=== PATIENT | female | born 1930 | race Caucasian/White ===

== ENCOUNTER 2017-05-20 02:33 | Inpatient (IN) | payer OTHER ==
[~2017-05-20] VITALS: Ht 162.6 cm; Wt 68.9 kg
--- NOTE | ~2017-05-20 | O ---
[facility] [place] [address] OPERATIVE REPORT Name: KADYRIVER J Room #: 238-P ADM IN M.R.#: [id number] Admission: 05/20/17 Attend Phys: Gilmar Navarro DO Discharge: Date of : 32 Report #: [id number] THIS REPORT FOR: //name// CC: EUGENIO CARTER FAM unknown Gilmar Navarro DATE OF SERVICE: 05/28/2017 PREOPERATIVE DIAGNOSES: 1. Pneumonia. 2. Complex parapneumonic right pleural effusion. FINAL DIAGNOSES: 1. Pneumonia. 2. Complex parapneumonic right pleural effusion. OPERATIVE PROCEDURE PERFORMED: Right thoracotomy with decortication of right lower lobe. SURGEON: Derrek Pittman MD, PHYSICIAN ASSISTANT CERTIFIED: JOVANNI Carr. ANESTHESIA: General. OPERATIVE INDICATIONS: The patient is an 86-year-old female who was recently admitted to the hospital with dyspnea, diagnosed with right lower lobe pneumonia. She has developed a complex parapneumonic effusion which has not responded to small bore catheter placement. She was brought to the operating room now for decortication. OPERATIVE SUMMARY: The patient was brought into the operating room, placed on the OR table in supine position. After anesthesia was induced via the general endotracheal route and monitoring lines have been positioned, the patient was placed in left lateral decubitus position, prepped and draped in sterile fashion with chlorhexidine. A standard posterolateral thoracotomy incision was made. We entered the pleural space, the 6th intercostal space. We found abundant fibrinopurulent exudates in the right costovertebral angle and surrounding all of the right lower lobe. These exudates were stripped from the lung, from the vessel and the parietal pleural surface including the surface over the diaphragm. The right lower lobe was noted to be boggy and fragile consistent with the presence of pneumonia. The right upper lobe was relatively spared, as was the right middle lobe. Once the exudative material was freely debrided, the pleural space was irrigated with warm normal saline solution. Two 28-Spanish chest tubes were placed in the right pleural space, brought out through separate [facility] [address] [place] [address] OPERATIVE REPORT Name: RIVER HILLMAN Room #: 238-P [facility] IN .R.#: [id number] Admission: 05/20/17 Attend Phys: Gilmar Navarro DO Discharge: Date of : 32 Report #: [id number] stab incisions. It should be noted multiple inadvertent pulmonotomies were closed with chromic suture. The ribs were then reapproximated with #2 PDS suture. The muscular layers closed with #1 Vicryl, subcutaneous fascia with 2-0 Vicryl and skin with a 3-0 Monocryl. The sterile dressings were applied. The procedure was completed. The patient was taken to the postanesthesia care unit in stable condition. The operative blood loss was 58 mL. No intraoperative complications noted. All sponge, needle counts were reported as correct. By: 1344 [id number] /nt
--- NOTE | ~2017-05-20 | HC ---
[facility] [place] [address] CONSULTATION Name: RIVER HILLMAN Julian Room #: 408-P [facility] IN M.R.#: [id number] Admission: 05/20/17 Attend Phys: Gilmar Navarro DO Discharge: Date of : 32 Report #: [id number] THIS REPORT FOR: //name// CC: FAM unknown Gilmar Navarro REASON FOR CONSULTATION: I was asked to evaluate concerning right lung pneumonia. HISTORY OF PRESENT ILLNESS: The patient was an 86-year-old with underlying history of atrial fibrillation, hypertension and permanent pacemaker. Had acute onset of fever, chills, nausea and vomiting 2 days ago. Then developed some minimally productive cough and right-sided chest pain. Did not record her temperature. The pain worsened and was having difficulty catching her breath and she was brought in through the Emergency Room. Since admission, she has been placed on Levaquin and Solu-Medrol. She is on 2 liters of oxygen per nasal cannula. Continues to have pleuritic type chest pain in the right side. Denies any rash, further nausea, vomiting or diarrhea. No dysuria or frequency. No arthritis symptoms. No headache. No pharyngitis symptoms. She has had no travel outside the [place]. She does live with her and has visits from her grandchildren frequently. No one with known influenza. She has not had influenza vaccination this year. She is up to date on pneumococcal vaccine. ALLERGIES: None known. MEDICATIONS: As noted on her MAR including aspirin, losartan, Coumadin, hydrochlorothiazide and carvedilol. PAST MEDICAL HISTORY: Hypertension, pneumonia in the fall of 2008, atrial fibrillation for which she has a permanent pacemaker and remains on anticoagulation. FAMILY HISTORY: Noncontributory. SOCIAL HISTORY: Past smoker, no significant alcohol intake. REVIEW OF SYSTEMS: As noted above. PHYSICAL EXAMINATION: VITAL SIGNS: Afebrile and hemodynamically stable. GENERAL: She was alert and cooperative. She appeared ill. SKIN: Unremarkable. LYMPH: Unremarkable. EYES: Unremarkable. MOUTH: Unremarkable. [facility] [address] [place] [address] CONSULTATION Name: KADYRIVER Room #: [address] [place] [address] IN M.R.#: [id number] Admission: 05/20/17 Attend Phys: Gilmar Navarro DO Discharge: Date of : 32 Report #: [id number] NECK: Supple. LUNGS: Consolidation heard in the right mid posterior chest. There was rub audible on the right lateral mid chest. HEART: Regular, without murmur. ABDOMEN: Soft, nontender, no hepatosplenomegaly or mass appreciated. EXTREMITIES: Unremarkable. NEUROLOGIC: Nonfocal. LABORATORY STUDIES: Chest x-ray, right middle lobe and right lower lobe pulmonary infiltrate. She had a permanent pacemaker. Sodium 127, potassium 4.7, bicarbonate 25, creatinine 1.1, AST 81, ALT 78, alkaline phosphatase 131, bilirubin 2.6, hemoglobin 14.6, platelet count 136,000, white count was 6.6. Differential unremarkable. BNP 14,000. Echocardiogram, moderate aortic regurgitation and mitral regurgitation. Blood cultures are negative to date. IMPRESSION: Community-acquired pneumonia, right middle lobe, right lower lobe. This is in the setting of anticoagulation for atrial fibrillation. Suspecting pneumococcal pneumonia. Still possible we could be dealing with influenza. This would be less likely to cause the amount of pleuritic reaction. I would recommend that we continue IV antibiotic therapy along with antiviral therapy. Screen sputum culture as well as urine antigens. Screen for influenza. Monitor chest x-ray as she continues her treatment. She is at risk for developing further complications such as parapneumonic effusion. <ELECTRONICALLY SIGNED> By: Edgar Gracia MD 05/20/17 1818 1542 180 Edgar Garcia MD /nt
--- NOTE | ~2017-05-20 | HC ---
[facility] [place] [address] CONSULTATION Name: RIVER HILLMAN Room #: 238-P ADM IN M.R.#: [id number] Admission: 05/20/17 Attend Phys: Gilmar Navarro DO Discharge: Date of : 32 Report #: [id number] THIS REPORT FOR: //name// CC: GALO MOSES unknown Gilmar Parekh MD DATE OF SERVICE: 05/21/2017 REFERRING PROVIDER: Dr. Gilmar Navarro. REASON FOR CONSULTATION: Pleural effusion and pneumonia. CHIEF COMPLAINT: Chest pain and shortness of breath. HISTORY OF PRESENT ILLNESS: Our group was asked to see the patient in consultation while hospitalized at [facility]. History was taken from review of records and discussion with at the bedside and patient. She is a difficult historian due to some confusion, an 86-year-old, has a past pulmonary history, has had 3 days of increasing shortness of breath, right-sided chest pain, general malaise, fatigue and nausea, presented to the Emergency Department yesterday afternoon, was noted to have a significant right-sided infiltrate, underwent CT imaging yesterday evening, which revealed a moderate-sized right pleural effusion in addition to infiltrate. We were asked to evaluate today, seen around 12 o'clock this afternoon. The patient was somewhat confused, had no cough or sputum production but has continued to have some pleuritic right-sided chest pain. Of note, INR had been markedly elevated and she has been on warfarin for atrial fibrillation. ALLERGIES: None known. PAST MEDICAL HISTORY: 1. History of atrial fibrillation. 2. Sick sinus syndrome, status post pacemaker. 3. Hypertension. 4. Pneumonia in 2008. SOCIAL HISTORY: She is an ex-smoker, quitting about 20 years ago. No significant alcohol consumption. Lives with . FAMILY HISTORY: Noncontributory due to advanced age. REVIEW OF SYSTEMS: As described above. A 12-point review of systems is negative or difficult to obtain from the patient. [facility] [address] [place] [address] CONSULTATION Name: KADYJOSE MANUELRIVER J Room #: 238-[facility] IN [facility].#: [id number] Admission: 05/20/17 Attend Phys: Gilmar Navarro DO Discharge: Date of : 32 Report #: [id number] PHYSICAL EXAMINATION: VITAL SIGNS: Afebrile, pulse 60, respiratory rate of 16, blood pressure 120/70. GENERAL: This is a pleasant elderly woman, does not appear in any distress, somewhat confused. ENT: Clear oropharynx. NECK: Supple, no lymphadenopathy. LUNGS: Markedly diminished right base with some crackles. CARDIOVASCULAR: Heart regular. No murmurs or gallops. ABDOMEN: Soft, nontender. No mass. EXTREMITIES: Without edema, diminished pulses. LABORATORY DATA: White blood cell count 12,000, hemoglobin 14, hematocrit 42, platelet count 141. Sodium 126, potassium 5.0, chloride 94, bicarbonate 23, BUN 43, creatinine 1.6, glucose 92. Lactate was 2.2 earlier today. Arterial blood gas on 2 liters showed pH 7.36, pCO2 of 37, pO2 of 71, bicarbonate 20. CT scan as described in HPI. IMPRESSION: 1. Moderately large right pleural effusion. 2. Pneumonia, community acquired. 3. Strep bacteremia. 4. Acute renal insufficiency. 5. Confusion. 6. History of sick sinus syndrome with pacemaker. Overall, findings were worrisome for early sepsis due to strep bacteremia, likely from strep pneumonia and possible empyema with hypercoagulable state. RECOMMENDATIONS: 1. Reversing warfarin now with FFP. 2. As soon as able, place either a pigtail catheter in the right pleural space or simple drainage with thoracentesis if it appears amenable. 3. Antibiotics per Infectious Disease service. 4. Low threshold to transfer to ICU for further management. 5. Follow up laboratories this afternoon regarding chemistries in a.m. with CBC and chemistry profile. 6. We will continue to follow with you. Thank you for requesting our suggestions. <ELECTRONICALLY SIGNED> By: Corey Chavarria MD 05/28/17 1756 10 25 Corey Chavarria MD /nt
--- NOTE | ~2017-05-20 | EKG ---
[address] [place] [address] ELECTROCARDIOGRAM REPORT Name: KADYRIVER Jordan Room #: 408-P ADM IN M.R.#: [id number] Admission: 05/20/17 Attend Phys: Gilmar Navarro DO Discharge: Date of : 32 Report #: [id number] THIS REPORT FOR: //name// [facility] ED Test Date: 2017-05-20 Test Time: 02:38:58 Pat Name: RIVER HILLMAN Department: Room: 408 Gender: F [employer] Supervisor: MZOOK : 1930 Requested By: Edgar Sanon Order Number: [id number] MD: Lorenzo Jackson Measurements Intervals [place] Rate: 60 P: GA: QRS: -71 QRSD: 135 T: 100 QT: 437 QTc: 437 Interpretive Statements Ventricular pacing Compared to ECG 11/05/2011 06:06:09 Ventricular pacing is now present Electronically Signed On 05-20-2017 15:00:19 CDT by Lorenzo Jackson [email or web address] <ELECTRONICALLY SIGNED> By: Lorenzo Jackson MD, [facility] 05/20/17 1500 0238 0238 Lorenzo Jackson MD, FACC /EPI
--- NOTE | ~2017-05-20 | S ---
[facility] [place] [address] SURGICAL PATH RPT PROCEDURE Name: AMALIA HILLMAN Room #: 215-P ADM IN M.R.#: [id number] Admission: 05/20/17 Date of : 32 Discharge: Report #: [id number] Path Case #: [id number] PATHOLOGY REPORT COLLECTION DATE: 05/28/2017 RECEIVED DATE: 05/28/2017 SUBMITTING PHYS: Dr. Derrek Pittman OTHER PHYS: Dr. Gilmar Cobos SPECIMEN(S) RECEIVED: A.Right pleural exudate * * * * * * * * * * * * FINAL DIAGNOSIS: Right pleural exudate: - Fibrinopurulent material, consistent with exudate. (IUV:mml; 05/29/2017) PATHOLOGIST: Estefanía Lawson M.D. REPORT ELECTRONICALLY SIGNED BY: Estefanía Lawson M.D. DATE/TIME: 05/29/2017 15:15 * * * * * * * * * * * * GROSS PATHOLOGY: Received in formalin labeled "Amalia Hillman, right pleural exudate" is a 10.1 x 8.2 x 1.2 cm aggregate of wiggins-white rubbery membranous soft tissue fragments. Hall Monitor sections are submitted in cassette A1. [place] [place] CLINICAL HISTORY: Peripneumonic effusion. INITIAL CPT CODE(S): A; 98359 Professional services performed by [facility] at [facility] [address] [place] [address] Technical services performed by [facility] at [address] [place] [address], [place] [address], [place] [address]. [facility] [address] [place] [address] SURGICAL PATH RPT PROCEDURE Name: AMALIA HILLMAN Room #: 215-P ADM IN M.R.#: [id number] Admission: 05/20/17 Date of : 32 Discharge: Report #: [id number] Path Case #: [id number] [facility] [address] [address] PHONE: [phone] DIRECTOR: Augustin Avina M.D. * * * END OF REPORT * * *
--- NOTE | ~2017-05-20 | HC ---
[facility] [place] [address] CONSULTATION Name: RIVER HILLMAN Julian Room #: 408-P [facility] IN M.R.#: [id number] Admission: 05/20/17 Attend Phys: Gilmar Navarro DO Discharge: Date of : 32 Report #: [id number] THIS REPORT FOR: //name// CC: FAM unknown Gilmar Navarro REASON FOR CONSULTATION: Acute kidney injury and hyponatremia. REASON FOR PRESENTATION: Fever, chills and vomiting. HISTORY OF PRESENT ILLNESS: An 86-year-old with extensive past medical history including hypertension, pacemaker status, atrial fibrillation. She started to have some fever, chills, nausea 2 days prior to her presentation, and this was associated with right-sided pleuritic chest pain. No previous similar episodes. She presented for further evaluation and management. She was found to be in acute respiratory failure, acute kidney injury with hyponatremia and was admitted for further evaluation and management. Further hospital course revealed that she had right-sided pleural effusion growing strep. This was drained with a chest tube placed. 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 I am being asked to manage her hyponatremia. PAST MEDICAL HISTORY: 1. AFib. 2. Status post pacemaker insertion. 3. Chronic long-term anticoagulation. 4. Hypertension. 5. Sick sinus syndrome. SOCIAL HISTORY: No drug or alcohol abuse. She lives with her spouse OUTPATIENT MEDICATIONS: Include Warfarin, carvedilol, losartan, hydrochlorothiazide. REVIEW OF SYSTEMS: GENERAL: As per the history of present illness. CARDIOVASCULAR: Significant chest pain, but no palpitation. PULMONARY: As per the history of present illness. GASTROINTESTINAL: Decreased p.o. intake. GENITOURINARY: No frequency, no urgency. FAMILY HISTORY: Hypertension. PHYSICAL EXAMINATION: GENERAL: He is alert, oriented. VITAL SIGNS: Blood pressure 154/72. NECK: No jugular venous distention, no bruit, no thyromegaly. [facility] [address] [place] [address] CONSULTATION Name: RIVER HILLMAN Room #: 408-P [facility] IN [facility].#: [id number] Admission: 05/20/17 Attend Phys: Gilmar Navarro DO Discharge: Date of : 32 Report #: [id number] CHEST: Chest tube in place. Decreased air entry on the right side. CARDIOVASCULAR: Regular, with no rub. ABDOMEN: Soft, nontender with no hepatosplenomegaly. LOWER EXTREMITIES: No edema. Intact peripheral pulses. LABORATORY DATA: Reviewed. Sodium is down to 121 after hydration. Creatinine is down to 1.4. Blood cultures significant for strep pneumonia. ASSESSMENT, IMPRESSION, PLAN: 1. Strep pneumonia. 2. Hyponatremia. 3. Parapneumonic effusion. 4. Acute kidney injury. 5. Sick sinus syndrome with atrial fibrillation. 6. Her hyponatremia is well explained by her parapneumonic effusion. Her acute kidney injury is resolving. Vancomycin will be redosed. 7. 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 I will add salt tablet to increase her salt intake. ID is managing her infectious disease related issues and her pneumonitis. 8. Pulmonary is following for her parapneumonic effusion. 9. Cardiology is following for her AFib and sick sinus syndrome. <ELECTRONICALLY SIGNED> By: Joseph Bernard MD 05/25/17 0848 0850 0916 Joseph Bernard MD /nt
--- NOTE | ~2017-05-20 | 2DMMODE ---
[facility] [address] [employer] [address] [place] [address] 2 D/M-MODE ECHOCARDIOGRAM Name: RIVER HILLMAN Room #: 408-P [facility] IN ..#: [id number] Admission: 05/20/17 Attend Phys: Gilmar Navarro, Discharge: Date of : 32 Date of Service: 05/20/17 1011 Report #: [id number] THIS REPORT FOR: //name// APPROVED REPORT Study performed: 05/20/2017 09:20:51 EXAM: Comprehensive 2D, Doppler, and color-flow Echocardiogram Patient Location: Echo lab Room #: 408 Status: routine BSA: 1.65 HR: 60 bpm BP: 87/46 mmHg Other Information Study Quality: Good Indications Dyspnea Chest Pain Hypertension/HDD 2D Dimensions RVDd: 43.83 mm LVEF(%): 69.60 (>50%) IVSd: 11.57 (7-11mm) LVOT Diam: 17.55 (18-24mm) LVDd: 41.64 mm PWd: 12.44 (7-11mm) Ascending Ao: 28.53 (22-36mm) LVDs: 25.48 (25-40mm) Aortic Root: 30.32 mm IVC: 29.00 mm Abebe's LVEF: 69.60 % Volumes Left Atrial Volume (Systole) Single Plane 4CH: 104.84 mL Single Plane 2CH: 117.01 mL LA ESV Index: 74.00 mL/m2 Aortic Valve AoV Peak Onur.: 1.30 m/s AO Peak Gr.: 6.71 mmHg LVOT Max P.47 mmHg LVOT Max V: 0.93 m/s DEAN Vmax: 1.74 cm2 AI Vmax: 3.16 m/s AI Ogle: 1.65 m/s2 AI PHT: 555.10 ms [facility] [place] [address] 2 D/M-MODE ECHOCARDIOGRAM Name: RIVER HILLMAN Room #: 408-P [facility] IN ..#: [id number] Admission: 05/20/17 Attend Phys: Gilmar Navarro, Discharge: Date of : 32 Date of Service: 05/20/17 1011 Report #: [id number] Mitral Valve E/A Ratio: 5.5 MV Decel. Time: 220.58 ms MV E Max Onur.: 1.10 m/s MV A Onur.: 0.20 m/s MV PHT: 63.97 ms IVRT: 59.98 ms Pulmonary Valve PV Peak Onur.: 0.82 m/s PV Peak Gr.: 2.68 mmHg NC End Vmax: 1.20 m/s Pulmonary Vein P Vein S: 0.21 m/s P Vein A: 0.21 m/s P Vein D: 0.36 m/s P Vein A Dur.: 64.6 msec P Vein S/D Ratio: 0.58 Tricuspid Valve TR Peak Onur.: 3.65 m/s TR Peak Gr.: 53.36 mmHg PA Pressure: 68.00 mmHg Left Ventricle The left ventricle is normal size. There is normal LV segmental wall motion. Mild-moderate concentric left ventricular hypertrophy. The left ventricular systolic function is normal. The left ventricular ejection fraction is within the normal range. LVEF is 60-65%. The left ventricular diastolic function is normal. Right Ventricle Right ventricle is dilated. Right ventricular systolic function is lower limits of normal. Pacemaker lead is present in the right ventricle. Atria Left atrium is dilated. Right atrium is dilated. Aortic Valve Aortic valve is mildly sclerotic. Mild to moderate aortic regurgitation. There is no aortic valvular stenosis. Mitral Valve Mild-moderate mitral annular calcification Mild to moderate mitral regurgitation. No evidence of mitral valve stenosis. [facility] [address] [place] [address] 2 D/M-MODE ECHOCARDIOGRAM Name: RIVER HILLMAN Room #: 408-P [facility] IN ..#: [id number] Admission: 05/20/17 Attend Phys: Gilmar Navarro, Discharge: Date of : 32 Date of Service: 05/20/17 1011 Report #: [id number] Tricuspid Valve The tricuspid valve is normal in structure. There is moderate tricuspid regurgitation. Estimated PAP 65 mmHg. There is moderate-severe pulmonary hypertension. Pulmonic Valve The pulmonary valve is normal in structure. Trace to mild pulmonic regurgitation. Great Vessels The aortic root is normal in size. The inferior vena cava is dilated with no inspiratory collapse. Pericardium There is no pericardial effusion. <Conclusion> The left ventricular systolic function is normal. There is normal LV segmental wall motion. LVEF is 60-65%. Both atria are dilated. Aortic valve is mildly sclerotic, no stenosis. Mild to moderate aortic regurgitation. Mild-moderate mitral annular calcification. Mild to moderate mitral regurgitation. There is moderate tricuspid regurgitation. Estimated pulmonary artery pressure of 65 mmHg. There is no pericardial effusion. <ELECTRONICALLY SIGNED> By: Lorenzo Jackson MD, FACC 05/20/17 1011 1011 1011 Lorenzo Jackson MD, FACC /INF
[~2017-05-20 02:33] MED LIST: ASPIRIN EC81 M1 PO; CARDIZEM CD120 MG PO; COREG6.25 MG PO; COUMADIN 3 MG TA3 MG; COUMADIN 5 MG TA5 M1 PO; COZAAR 25 MG TA25 M2; COZAAR 25 MG TA25 M2 PO; ENALAPRIL MALEA20 MG PO; FLECAINIDE ACET50 M1 PO; GLUCOSAMINE &1 EACH PO; HYDROCHLOROTH12.5 M1 PO; HYDROCHLOROTHIA25 M2 PO; LISINOPRIL40 MG PO; NORCO 5-325 TA1 EACH PO; TEGRETOL XR100 MG PO; [UNRECOGNIZED DRUG - REMARK]
[2017-05-20 02:34] VITALS: BP 156/64
[2017-05-20 03:18] LABS: ABSOLUTE NEUTROPHILS 5.7 thou/uL (1.4-8.2); BASOPHILS 0.4 % (0.0-2.0); EOSINOPHILS 0.3 % (0.0-3.0); HEMATOCRIT 43.8 % (37.0-47.0); HEMOGLOBIN 14.6 gm/dL (12.0-15.0); LYMPHOCYTES 10.4 % (24.0-44.0); MCH 29.9 pg (26.0-34.0); MCHC 33.3 g/dL (28.0-37.0); MCV 89.8 fL (80.0-100.0); MONOCYTES 2.7 % (1.0-8.0); PLATELET COUNT 136 thou/uL (150-400); POLYS 86.2 % (36.0-66.0); RBC 4.88 mil/uL (4.20-5.00); RDW 15.1 % (10.5-14.5); WBC 6.6 thou/uL (4.0-11.0)
[2017-05-20 03:27] LABS: ANION GAP 8 mmol/L (7-16); BUN 29 mg/dL (7-18); CALCIUM 9.5 mg/dL (8.5-10.1); CHLORIDE 94 mmol/L (98-107); CO2 25 mmol/L (21-32); CREATININE 1.1 mg/dL (0.6-1.0); GLUCOSE 100 mg/dL (74-106); POTASSIUM 4.7 mmol/L (3.5-5.1); SODIUM 127 mmol/L (136-145)
[2017-05-20 03:35] LABS: APTT 43.9 Seconds (24.5-32.8); INR 2.3; MAGNESIUM 1.9 mg/dL (1.8-2.4); PROTIME 23.5 Seconds (9.3-11.4); SGOT 81 U/L (15-37); SGPT 78 U/L (30-65); TOTAL BILIRUBIN 2.6 mg/dL (<0.1-1.0); TOTAL PROTEIN 7.1 g/dL (6.4-8.2); TROPONIN-I < 0.04 ng/mL (<0.06)
[2017-05-20 05:14] VITALS: BP 102/49
[2017-05-20 07:50] VITALS: BP 87/46
[2017-05-20 08:00] VITALS: BP 90/58
[2017-05-20 08:41] LABS: PROCALCITONIN 6.89 ng/mL (<0.50)
[2017-05-20 08:50] LABS: TSH 2.073 uIU/mL (0.358-3.740)
[2017-05-20 16:09] VITALS: BP 112/53
[2017-05-20 20:13] VITALS: BP 115/53
[2017-05-20 21:39] LABS: URINE BILIRUBIN NEGATIVE (Negative); URINE BLOOD NEGATIVE (Negative); URINE CLARITY CLEAR; URINE GLUCOSE-RANDOM* NEGATIVE (Negative); URINE KETONES NEGATIVE (Negative); URINE LEUKOCYTES-REFLEX NEGATIVE (Negative); URINE NITRITE-REFLEX NEGATIVE (Negative); URINE PROTEIN (DIPSTICK) 1+ (Negative); URINE SPECIFIC GRAVITY >= 1.030 (1.005-1.035); URINE UROBILINOGEN 0.2 E.U./dl (0.2-1.0)
[2017-05-20 21:40] LABS: URINE COLOR AMBER
[2017-05-20 21:48] LABS: CASTS None Seen /LPF (None Seen); CRYSTALS None Seen /LPF (None Seen); SQUAMOUS 4-10 Moderate /LPF (0-3)
[2017-05-20 21:49] LABS: BACTERIA-REFLEX 1-9 Few /HPF (None Seen); URINE RBC None Seen /HPF (0-2); URINE WBC-REFLEX None Seen /HPF (0-5)
[2017-05-21] VITALS (7 sets, daily range): BP systolic 120–132; BP diastolic 41–70
[2017-05-21 03:06] LABS: 25-HYDROXY TOTAL 29.5 ng/mL (30.0-100.0)
[2017-05-21 06:39] LABS: CALCIUM 8.6 mg/dL (8.5-10.1); CREATININE 1.6 mg/dL (0.6-1.0); MAGNESIUM 1.7 mg/dL (1.8-2.4)
[2017-05-21 06:40] LABS: HEMATOCRIT 42.4 % (37.0-47.0)
[2017-05-21 06:42] LABS: HEMOGLOBIN 14.1 gm/dL (12.0-15.0); MCH 30.2 pg (26.0-34.0); MCHC 33.3 g/dL (28.0-37.0); MCV 90.7 fL (80.0-100.0); PLATELET COUNT 141 thou/uL (150-400); RBC 4.68 mil/uL (4.20-5.00); RDW 15.5 % (10.5-14.5); WBC 11.7 thou/uL (4.0-11.0)
[2017-05-21 06:51] LABS: PROTIME 84.6 Seconds (9.3-11.4)
[2017-05-21 07:03] LABS: INR 8.6
[2017-05-21 08:32] LABS: ABSOLUTE NEUTROPHILS 11.1 thou/uL (1.4-8.2)
[2017-05-21 10:42] LABS: INR 12.2
[2017-05-21 14:02] LABS: BE(vivo) -4.6 mmol/L (-2 to +3); HCO3 20.2 mmol/L (22.0-26.0); PCO2 36.8 mmHg (35.0-45.0); PO2 70.5 mmHg (80.0-100.0); pH 7.358 (7.360-7.450); sO2 93.7 % (92.0-98.0)
[2017-05-21 22:08] LABS: CLARITY CLOUDY; COLOR AMBER; SOURCE RT LUNG; TOTAL VOLUME 60 mL
[2017-05-21 22:09] LABS: BF NUCLEATED CELLS 115000; BF RBC 17500
[2017-05-22 00:20] LABS: BF NEUTROPHILS 93
[2017-05-22 00:24] LABS: BF MACROPHAGE 6
[2017-05-22 04:17] VITALS: BP 134/62
[2017-05-22 04:38] LABS: HEMATOCRIT 40.5 % (37.0-47.0); HEMOGLOBIN 13.5 gm/dL (12.0-15.0); MCH 29.8 pg (26.0-34.0); MCHC 33.2 g/dL (28.0-37.0); MCV 89.8 fL (80.0-100.0); PLATELET COUNT 156 thou/uL (150-400); RBC 4.51 mil/uL (4.20-5.00); RDW 15.5 % (10.5-14.5); WBC 13.9 thou/uL (4.0-11.0)
[2017-05-22 04:48] LABS: PROTIME 20.7 Seconds (9.3-11.4)
[2017-05-22 04:51] LABS: ALBUMIN 2.2 g/dL (3.4-5.0); CALCIUM 8.7 mg/dL (8.5-10.1); MAGNESIUM 1.9 mg/dL (1.8-2.4); POTASSIUM 4.8 mmol/L (3.5-5.1); TOTAL BILIRUBIN 0.8 mg/dL (<0.1-1.0); TOTAL PROTEIN 6.2 g/dL (6.4-8.2)
[2017-05-22 06:55] VITALS: BP 144/66
[2017-05-22 07:30] LABS: ABSOLUTE NEUTROPHILS 12.9 thou/uL (1.4-8.2); METAMYELOCYTES 1 %
[2017-05-22 08:57] LABS: SOURCE THORACENTESIS
[2017-05-22 11:33] LABS: URINE CREATININE-RANDOM* 118.2 mg/dL; URINE SODIUM-RANDOM* < 5.0 mmol/L
[2017-05-22 12:52] LABS: URINE BILIRUBIN NEGATIVE (Negative); URINE BLOOD NEGATIVE (Negative); URINE CLARITY CLEAR; URINE COLOR YELLOW; URINE GLUCOSE-RANDOM* NEGATIVE (Negative); URINE KETONES NEGATIVE (Negative); URINE LEUKOCYTES NEGATIVE (Negative); URINE NITRITE NEGATIVE (Negative); URINE PROTEIN (DIPSTICK) TRACE (Negative); URINE SPECIFIC GRAVITY 1.025 (1.005-1.035); URINE UROBILINOGEN 0.2 E.U./dl (0.2-1.0)
[2017-05-22 15:40] VITALS: BP 188/64
[2017-05-22 20:00] VITALS: BP 157/65
[2017-05-22 23:07] LABS: ADENOVIRUS Negative (Negative); INFLUENZA A Negative (Negative); INFLUENZA B Negative (Negative); METAPNEUMOVIRUS Negative (Negative); PARAINFLUENZA 1 Negative (Negative); PARAINFLUENZA 2 Negative (Negative); PARAINFLUENZA 3 Negative (Negative); RHINOVIRUS Negative (Negative); RSV A Negative (Negative); RSV B Negative (Negative)
[2017-05-23 00:23] VITALS: BP 163/82
[2017-05-23 04:19] LABS: HEMATOCRIT 41.7 % (37.0-47.0); HEMOGLOBIN 13.9 gm/dL (12.0-15.0); MCH 29.9 pg (26.0-34.0); MCHC 33.4 g/dL (28.0-37.0); MCV 89.5 fL (80.0-100.0); PLATELET COUNT 155 thou/uL (150-400); RBC 4.66 mil/uL (4.20-5.00); RDW 15.1 % (10.5-14.5); WBC 13.8 thou/uL (4.0-11.0)
[2017-05-23 04:28] LABS: INR 2.2; PROTIME 21.9 Seconds (9.3-11.4)
[2017-05-23 04:31] LABS: ALBUMIN 2.1 g/dL (3.4-5.0); CALCIUM 8.8 mg/dL (8.5-10.1); CREATININE 1.4 mg/dL (0.6-1.0); PHOSPHORUS 2.6 mg/dL (2.5-4.9)
[2017-05-23 04:42] VITALS: BP 154/72
[2017-05-23 04:52] LABS: ANISOCYTOSIS SLIGHT; MYELOCYTES 1 %
[2017-05-23 07:40] VITALS: BP 206/94
[2017-05-23 15:06] LABS: BODY FLUID ALBUMIN 1.8 g/dL (()); BODY FLUID AMYLASE 22 U/L (()); BODY FLUID GLUCOSE 78 mg/dL (()); BODY FLUID PROTEIN 2.8 g/dL (())
[2017-05-23 16:25] VITALS: BP 178/82
[2017-05-23 18:10] LABS: BODY FLUID LDH 12378 IU/L (())
[2017-05-23 20:31] VITALS: BP 145/70
[2017-05-24 04:48] VITALS: BP 191/80
[2017-05-24 05:25] LABS: HEMATOCRIT 40.6 % (37.0-47.0); HEMOGLOBIN 13.8 gm/dL (12.0-15.0); MCH 30.5 pg (26.0-34.0); MCHC 34.1 g/dL (28.0-37.0); MCV 89.4 fL (80.0-100.0); PLATELET COUNT 193 thou/uL (150-400); RBC 4.55 mil/uL (4.20-5.00); RDW 14.9 % (10.5-14.5)
[2017-05-24 05:32] LABS: INR 2.4; PROTIME 24.2 Seconds (9.3-11.4)
[2017-05-24 05:37] LABS: ALBUMIN 2.1 g/dL (3.4-5.0); CALCIUM 8.9 mg/dL (8.5-10.1); CREATININE 0.9 mg/dL (0.6-1.0); POTASSIUM 4.5 mmol/L (3.5-5.1)
[2017-05-24 07:47] VITALS: BP 196/68
[2017-05-24 11:18] LABS: ANISOCYTOSIS 1+; METAMYELOCYTES 1 %; NUCLEATED RBCS 2 /100WBC
[2017-05-24 17:28] VITALS: BP 188/71
[2017-05-24 20:00] VITALS: BP 158/65
[2017-05-25] VITALS: BP 164/74
[2017-05-25 04:00] VITALS: BP 168/76
[2017-05-25 06:16] LABS: INR 2.2
[2017-05-25 06:27] LABS: ALBUMIN 2.1 g/dL (3.4-5.0); CALCIUM 8.7 mg/dL (8.5-10.1); CREATININE 0.6 mg/dL (0.6-1.0); PHOSPHORUS 2.4 mg/dL (2.5-4.9); POTASSIUM 4.6 mmol/L (3.5-5.1)
[2017-05-25 09:29] VITALS: BP 187/78
[2017-05-25 15:00] VITALS: BP 168/74
[2017-05-25 15:45] VITALS: BP 161/68
[2017-05-25 20:00] VITALS: BP 151/55
[2017-05-26 04:00] VITALS: BP 185/66
[2017-05-26 06:44] LABS: ALBUMIN 2.2 g/dL (3.4-5.0); CALCIUM 8.7 mg/dL (8.5-10.1); CREATININE 0.7 mg/dL (0.6-1.0); PHOSPHORUS 2.8 mg/dL (2.5-4.9); POTASSIUM 4.4 mmol/L (3.5-5.1)
[2017-05-26 09:32] VITALS: BP 170/67
[2017-05-26 20:29] VITALS: BP 137/51
[2017-05-27 04:00] VITALS: BP 166/46
[2017-05-27 04:08] LABS: HEMATOCRIT 38.9 % (37.0-47.0); HEMOGLOBIN 13.2 gm/dL (12.0-15.0); MCH 30.4 pg (26.0-34.0); MCHC 33.9 g/dL (28.0-37.0); MCV 89.5 fL (80.0-100.0); RBC 4.34 mil/uL (4.20-5.00); RDW 14.7 % (10.5-14.5); WBC 20.5 thou/uL (4.0-11.0)
[2017-05-27 04:20] LABS: CREATININE 0.7 mg/dL (0.6-1.0); POTASSIUM 4.7 mmol/L (3.5-5.1)
[2017-05-27 04:23] LABS: INR 1.4
[2017-05-27 06:19] VITALS: BP 156/54
[2017-05-27 08:00] VITALS: BP 148/62
[2017-05-27 09:25] LABS: BE(vivo) 1.7 mmol/L (-2 to +3); PCO2 35.2 mmHg (35.0-45.0); PO2 90.8 mmHg (80.0-100.0); sO2 97.4 % (92.0-98.0)
[2017-05-27 12:30] VITALS: BP 131/51
[2017-05-27 16:11] VITALS: BP 136/45
[2017-05-27 16:45] LABS: INR 1.2; PROTIME 12.7 Seconds (9.3-11.4)
[2017-05-27 19:33] VITALS: BP 120/55
[2017-05-28 05:12] VITALS: BP 165/66
[2017-05-28 07:30] VITALS: BP 166/71
[2017-05-28 10:02] LABS: INR 1.1
[2017-05-28 10:08] LABS: CREATININE 0.7 mg/dL (0.6-1.0); POTASSIUM 4.9 mmol/L (3.5-5.1)
[2017-05-28 14:10] VITALS: BP 134/58
[2017-05-28 14:15] VITALS: BP 100/70
[2017-05-29] VITALS (8 sets, daily range): BP systolic 110–155; BP diastolic 48–81
[2017-05-29 04:35] LABS: HEMATOCRIT 40.2 % (37.0-47.0); HEMOGLOBIN 13.5 gm/dL (12.0-15.0); MCH 30.3 pg (26.0-34.0); MCHC 33.5 g/dL (28.0-37.0); MCV 90.6 fL (80.0-100.0); RBC 4.44 mil/uL (4.20-5.00); RDW 14.9 % (10.5-14.5)
[2017-05-29 04:49] LABS: CALCIUM 8.7 mg/dL (8.5-10.1); CREATININE 0.8 mg/dL (0.6-1.0); POTASSIUM 5.6 mmol/L (3.5-5.1)
[2017-05-30 00:29] VITALS: BP 133/68
[2017-05-30 04:34] LABS: ALBUMIN 1.8 g/dL (3.4-5.0); CALCIUM 9.3 mg/dL (8.5-10.1); PHOSPHORUS 4.2 mg/dL (2.5-4.9)
[2017-05-30 04:44] VITALS: BP 166/70
[2017-05-30 04:44] LABS: POTASSIUM 6.2 mmol/L (3.5-5.1)
[2017-05-30 07:45] VITALS: BP 130/50
[2017-05-30 11:35] VITALS: BP 138/61
[2017-05-30 15:20] VITALS: BP 129/63
[2017-05-30 19:55] VITALS: BP 126/53
[2017-05-31 04:17] VITALS: BP 139/65
[2017-05-31 07:05] LABS: BASOPHILS 0.4 % (0.0-2.0); EOSINOPHILS 0.4 % (0.0-3.0); HEMATOCRIT 35.9 % (37.0-47.0); LYMPHOCYTES 6.8 % (24.0-44.0); MCH 30.2 pg (26.0-34.0); MCHC 33.5 g/dL (28.0-37.0); MCV 90.4 fL (80.0-100.0); MONOCYTES 8.6 % (1.0-8.0); POLYS 83.8 % (36.0-66.0); RBC 3.97 mil/uL (4.20-5.00); RDW 14.7 % (10.5-14.5); WBC 9.6 thou/uL (4.0-11.0)
[2017-05-31 07:08] LABS: PLATELET COUNT 243 thou/uL (150-400)
[2017-05-31 07:16] LABS: ALBUMIN 1.6 g/dL (3.4-5.0); CALCIUM 8.7 mg/dL (8.5-10.1); CREATININE 0.7 mg/dL (0.6-1.0); PHOSPHORUS 2.5 mg/dL (2.5-4.9); POTASSIUM 5.3 mmol/L (3.5-5.1)
[2017-05-31 08:00] VITALS: BP 148/71
[2017-05-31 11:55] VITALS: BP 119/55
[2017-05-31 16:00] VITALS: BP 147/63
[2017-05-31 19:56] VITALS: BP 108/48
[2017-06-01] VITALS (7 sets, daily range): BP systolic 134–169; BP diastolic 50–75
[2017-06-01 03:57] LABS: ALBUMIN 1.7 g/dL (3.4-5.0); CALCIUM 8.4 mg/dL (8.5-10.1); CREATININE 0.7 mg/dL (0.6-1.0); POTASSIUM 4.5 mmol/L (3.5-5.1)
[2017-06-02 04:00] VITALS: BP 143/52
[2017-06-02 04:37] LABS: ALBUMIN 1.7 g/dL (3.4-5.0); CALCIUM 8.4 mg/dL (8.5-10.1); CREATININE 0.6 mg/dL (0.6-1.0); PHOSPHORUS 2.6 mg/dL (2.5-4.9); POTASSIUM 4.2 mmol/L (3.5-5.1)
[2017-06-02 07:40] VITALS: BP 151/67
[2017-06-02 12:20] VITALS: BP 168/100
[2017-06-02 16:05] VITALS: BP 167/73
[2017-06-02] MEDS ORDERED: COLACE 100 MG100 MG PO (17:01)
[2017-06-02] MEDS ORDERED: MIRALAX17 GM PO (17:01)
== END 2017-06-02 18:30 | DRG 853 ==
LOC: ER 02:33 → 4N 04:12 → EROBS 04:12 → 2N 04:12 → 4N 04:56 → TBA 05-28 11:24 → ICU 05-28 13:22 → 2N 05-29 14:55
PROVIDERS: Anesthesiology; Emergency Medicine; Family Medicine; Hospitalist; Internal Medicine Cardiovascular Disease; Internal Medicine Infectious Disease; Internal Medicine Nephrology; Internal Medicine Pulmonary Disease; Nurse Practitioner; Radiology Diagnostic Radiology; Registered Nurse; Specialist
DX: A40.3 Sepsis due to Streptococcus pneumoniae (principal); J96.01 Acute respiratory failure with hypoxia; J13 Pneumonia due to Streptococcus pneumoniae; N17.9 Acute kidney failure, unspecified; E87.1 Hypo-osmolality and hyponatremia; J90 Pleural effusion, not elsewhere classified; D68.59 Other primary thrombophilia; I48.91 Unspecified atrial fibrillation; N18.9 Chronic kidney disease, unspecified; I12.9 Hypertensive chronic kidney disease with stage 1 through stage 4 chronic kidney disease, or unspecified chronic kidney disease; E80.6 Other disorders of bilirubin metabolism; D69.6 Thrombocytopenia, unspecified; E86.0 Dehydration; B37.9 Candidiasis, unspecified; K59.00 Constipation, unspecified; I27.20 Pulmonary hypertension, unspecified; I07.1 Rheumatic tricuspid insufficiency; E87.5 Hyperkalemia; E87.70 Fluid overload, unspecified; K12.30 Oral mucositis (ulcerative), unspecified; Z79.01 Long term (current) use of anticoagulants; Z95.810 Presence of automatic (implantable) cardiac defibrillator; Z79.82 Long term (current) use of aspirin; Z79.899 Other long term (current) drug therapy; Z87.891 Personal history of nicotine dependence
CPT/HCPCS: 10078; 10081; 10790; 47405; 50010; 50101; 50386; 50417; 50455; 50497; 51301; 56524; 56525; 56526; 56527; 56528; 62110; 62900; 70005

== ENCOUNTER 2017-06-02 16:27 | Inpatient (IN) | payer OTHER ==
[~2017-06-02] VITALS: Ht 162.6 cm; Wt 70.3 kg
--- NOTE | ~2017-06-02 | HC ---
[facility] [place] [address] CONSULTATION Name: RIVER HILLMAN Room #: 501-A [facility] IN ..#: [id number] Admission: 06/02/17 Attend Phys: Bob Anderson MD Discharge: Date of : 32 Report #: [id number] THIS REPORT FOR: //name// CC: Bob Anderson [facility] unknown DATE OF SERVICE: 06/06/2017 NEUROBEHAVIORAL STATUS EXAMINATION AGE: 86. ATTENDING PHYSICIAN: Bob Anderson MD SAW MAKER: Carlos Guy, PhD CLINICAL PRESENTATION: The patient is an 86-year-old female admitted to the [facility] Rehabilitation Unit for comprehensive inpatient rehabilitation program to improve functional mobility, activities of daily living and self-care along with mental status. She is admitted with the diagnosis of medical complexity and generalized debility. She carries an additional assessment of pneumococcal pneumonia with right pleural effusion, status post thoracotomy with decortication, left pleural effusion, Streptococcus pneumoniae, atrial fibrillation, acute renal insufficiency, volume overload with diuresis and lower extremity edema. A complete description of her medical condition and history can be found in her medical record. Neuropsychological consultation was requested to provide assistance in the assessment of cognitive and emotional status and to provide recommendations and services. Prior to this most recent admission, she is reported to have been living independently with her in their home. This is her second marriage. Her first . She is a high school graduate and has attended [employer]. The patient had 8 children. Occasional anxiety is reported regarding the well-being of her kids. The patient does not report a history of treatment for anxiety or depression. There is also no reported history of alcohol or drug abuse. Her primary concern is in regard to the pain on her right side as a result of the thoracotomy. TECHNIQUES UTILIZED: Clinical interview, review of medical records, staff consultation and behavioral observation, mini mental status exam 2 standard version, family interview -- , verbal fluency assessment (category and letter) and clock drawing. EXAMINATION FINDINGS: The patient was alert and cooperative with the assessment. She accurately described events surrounding her admission. There is no evidence of aphasia. Her thoughts are logical and goal oriented. There [facility] [address] [place] [address] CONSULTATION Name: RIVER HILLMAN Room #: 501-A [facility] IN ..#: [id number] Admission: 06/02/17 Attend Phys: Bob Anderson MD Discharge: Date of : 32 Report #: [id number] is no evidence of thought disorder. She does not report auditory or visual hallucinations. The patient denies anxiety, depression, sleep, appetite or cognition. Her performance on the MMSE 2 brief version was extremely low with a raw score of 10 of 16 and a T score of 15. She was 3/3 for initial registration, 3/5 for orientation to time and 3/[address]. She is 1/3 for immediate recall of 3 items after a brief time delay and distraction. Her performance improved on the MMSE 2 standard version to a raw score at 23 of 30, which is a T score of 36 and in the mild range of impairment. The patient was 4/5 for serial sevens. She was 2/2 for naming, 1/1 for repetition, 3/3 for auditory comprehension. She could read and follow single command, write a sentence and copy a simple geometric design. Clock drawing was within normal limits. Letter fluency was within normal limits with a raw score of 17 and a T score of 62. Category fluency is within normal limits with a raw score of 20 and a T score of 64. The patient is presenting with variability in cognitive functioning. Difficulty with immediate memory and reduced processing speed is suggested. DIAGNOSTIC IMPRESSION: Mild neurocognitive disorder, unspecified, without behavior disorder. RECOMMENDATIONS: The patient will benefit from the use of compensatory strategies to assist with immediate recall and decreased speed of processing. Followup neuropsychological testing is indicated to clarify cognitive status prior to return to driving and the level of independence that she had before this medical event. Thank you very much for allowing me to provide the consultation on this patient. <ELECTRONICALLY SIGNED> By: Carlos Guy, PhD 06/07/17 1635 1651 02 Carlos Guy, PhD /nt
--- NOTE | ~2017-06-02 | H ---
[facility] [place] [address] HISTORY AND PHYSICAL Name: RIVER HILLMAN Julian Room #: 501-A ADM IN ..#: [id number] Admission: 06/02/17 Attend Phys: Bob Anderson MD Discharge: Date of : 32 Report #: [id number] THIS REPORT FOR: //name// CC: Bob Anderson [facility] unknown DATE OF SERVICE: 06/03/2017 HISTORY AND PHYSICAL/POST-ADMISSION PHYSICIAN EVALUATION HISTORY OF PRESENT ILLNESS: The patient is an 86-year-old white female who was admitted with pneumonia, was noted to have a complex parapneumonic right pleural effusion. She end up undergoing a right thoracotomy with decortication of right lower lobe on 05/28/2017. She has been followed postoperatively. Chest tube was removed. She had a left pleural effusion, but per ultrasound was not enough fluid to tap. She had acute renal insufficiency, which is improved. She had some volume overload with some diuresis per Nephrology and appears to be doing better. She also has been monitored regarding atrial fibrillation. Infectious Disease is involved with the Streptococcus pneumonia with empyema and bacteremia. She has been on IV ceftriaxone. She has had lower extremity edema with her volume overload with Nephrology involved and improvement with IV Lasix. She has had electrolyte abnormalities with hyponatremia. She has medical complexity with generalized debilitation and has now been admitted for acute in-hospital inpatient rehabilitation. PAST MEDICAL HISTORY: Includes hypertension, facial spasms, pneumonia, fall in 2008, atrial fibrillation. HABITS: Former tobacco abuse, quit greater than a year ago. Occasional ETOH. PAST SURGICAL HISTORY: Also includes atrial fibrillation. MEDICATIONS: Please see the full medication listing. Each of these was individually reconciled. On admission includes vitamins, herbals, and supplements. ALLERGIES: No known drug allergies. FAMILY HISTORY: Noncontributory. SOCIAL HISTORY: She lives with her . They live in a house, 2 steps in. She did not utilize gait aids, was not on oxygen. REVIEW OF SYSTEMS: Complains of some shortness of breath with limited activity. No current chest pain, has concerns regarding her lower extremity edema, but thinks it is better overall. No focal extremity pain complaints. Complains of [facility] [address] [place] [address] HISTORY AND PHYSICAL Name: RIVER HILLMAN Room #: 501-A [facility] IN [facility]#: [id number] Admission: 06/02/17 Attend Phys: Bob Anderson MD Discharge: Date of : 32 Report #: [id number] generalized weakness. PHYSICAL EXAMINATION: GENERAL: An 86-year-old white female in no obvious distress. VITAL SIGNS: Last recorded temperature is 98, pulse 59, respirations 20, blood pressure 128/61. The patient is alert. She is pleasant. HEENT: Appeared to be benign. Cranial nerves are grossly intact. Facies are symmetric. Nasal prong O2 is in place. She is currently on 2 liters. CHEST: Her right thoracotomy site appears to be healing well. Some diffuse decreased breath sounds. CARDIOVASCULAR: Regular rate with extra beats. ABDOMEN: She is thin. Bowel sounds are positive. Nontender. GENITOURINARY AND RECTAL: Deferred. EXTREMITIES: She has functional range of motion of both upper extremities with strength grade 4- to 3+/5. DTRs are trace to 1. In her lower extremities, she has distal lower extremity pitting edema, 2+. She has some venous stasis changes. Lower extremities revealed functional range of motion with strength grade 3+ to 4-/5. Tone appeared to be intact. Transfers are contact guard and she has been mod assist with short distance ambulation. ASSESSMENT: An 86-year-old white female with the following problem list: 1. Medical complexity with generalized debilitation. 2. Pneumococcal pneumonia with right pleural effusion, status post thoracotomy with decortication. 3. Left pleural effusion, not enough fluid to tap. 4. Streptococcus pneumonia with empyema and bacteremia. Continues on IV antibiotics as per Infectious Disease. 5. Atrial fibrillation. 6. Acute renal insufficiency. 7. Volume overload with diuresis per Nephrology. 8. Lower extremity edema. PLAN: The patient is admitted for acute in-hospital inpatient rehabilitation. From a postadmission physician evaluation perspective, there are no relevant changes since the preadmission screening. Please see the above review of prior and current medical and functional conditions and comorbidities. Please see the patient's previous and current functional status. As far as risk of complications, the patient has multiple medical comorbidities as noted above. The initial plan of care involves the interdisciplinary acute inpatient rehabilitation program with goal of maximizing the patient's functional independence, so that she can hopefully return back to her prior living situation. Measurable functional goals would be for the patient to become modified independent with transfers, mobility and ADLs, so that she can hopefully return back to her prior living situation. Prognosis is reasonably good with estimated length of stay probably at least 7-10 days and likely longer [facility] [address] [place] [address] HISTORY AND PHYSICAL Name: RIVER HILLMAN Room #: 501-A ADM IN .R.#: [id number] Admission: 06/02/17 Attend Phys: Bob Anderson MD Discharge: Date of : 32 Report #: [id number] as needed depending upon how she does. Potential barriers would include her multiple medical comorbidities and decreased functional status. <ELECTRONICALLY SIGNED> By: Bob Anderson MD 06/05/17 1409 0801 0831 Bob Anderson MD /PMT
--- NOTE | ~2017-06-02 | PLAN ---
[facility] [place] [address] REHAB UNIT PLAN OF CARE Name: RIVER HILLMAN Room #: 501-A [facility] IN ..#: [id number] Admission: 06/02/17 Attend Phys: Bob Anderson MD Discharge: Date of : 32 Report #: [id number] THIS REPORT FOR: //name// CC: Bob Anderson [facility] unknown DATE OF SERVICE: 06/05/2017 PROGRESS NOTE/OVERALL PLAN OF CARE SUBJECTIVE: The patient is seen back today in followup. Complains of some constipation. Notes, she has not had a BM in 3 days, would like a suppository. Also, have some complaints of some right foot pain. She notes it does bother her some with ambulation. Temperature 98.2, pulse 59, respirations 18, blood pressure 180/84. She is alert, pleasant. Abdomen does not appear distended. Lower extremities: She does have 1+ edema, right foot dorsum. She has some mild tenderness to palpation. She was nontender over the arch itself. She has good range of motion of that right ankle. Functionally, she has been transferring with standby assistance and she has ambulated 15 feet contact guard with a front-wheeled walker. In occupational therapy, lower body dressing is set up. ASSESSMENT: 1. Medical complexity with generalized debilitation. 2. Pneumococcal pneumonia with right pleural effusion, status post thoracotomy with decortication. 3. Left pleural effusion with not enough fluid to tap. 4. Streptococcus pneumonia with empyema and bacteremia. 5. Atrial fibrillation. 6. Right foot pain. We will check an x-ray. She does have some dependent edema. 7. Lower extremity edema. 8. Constipation. She has a stool softener and we will add a suppository as per her request. Internal medicine is also following with the Hospitalist group. PLAN: The overall plan of care is based on the preadmission screen, post-admission physician evaluation and information garnered from therapy assessments. 1. Estimated length of stay is probably at least 7-10 days, pending progress. 2. Medical prognosis is reasonably good. 3. Anticipated interventions includes the interdisciplinary acute inpatient rehabilitation program with goal of maximizing the patient's functional independence, so that she can hopefully return back to her prior living situation. 4. Anticipated functional outcomes would be for her to become modified independent with transfers, mobility and ADLs [place] [address] REHAB UNIT PLAN OF CARE Name: KADYJOSE MANUELRIVER J Room #: 501-A [facility] IN [facility]#: [id number] Admission: 06/02/17 Attend Phys: Bob Anderson MD Discharge: Date of : 32 Report #: [id number] home setting. 5. Discharge destination is back home where she lives with her . 6. Expected therapy by discipline includes PT and OT as well as speech therapy one hour per day each five days a week throughout the duration of the acute inpatient rehabilitation stay. She has had some mouth sores and is desiring to continue with pureed solids at this point in time. There were no overt signs or symptoms of penetration or aspiration per speech therapy. <ELECTRONICALLY SIGNED> By: Bob Anderson MD 06/08/17 1325 1133 [id number] Bob Anderson MD /PMT
[2017-06-02] MEDS ORDERED: COLACE 100 MG100 MG PO (17:01)
[2017-06-02] MEDS ORDERED: MIRALAX17 GM PO (17:01)
[2017-06-02 19:30] VITALS: BP 128/61
[2017-06-03 05:17] LABS: HEMOGLOBIN 11.2 gm/dL (12.0-15.0); MCH 30.4 pg (26.0-34.0); MCHC 33.9 g/dL (28.0-37.0); MCV 89.6 fL (80.0-100.0); RBC 3.68 mil/uL (4.20-5.00); RDW 14.2 % (10.5-14.5); WBC 6.5 thou/uL (4.0-11.0)
[2017-06-03 05:18] LABS: ALBUMIN 1.7 g/dL (3.4-5.0); CALCIUM 8.3 mg/dL (8.5-10.1); CREATININE 0.7 mg/dL (0.6-1.0); PHOSPHORUS 2.6 mg/dL (2.5-4.9); POTASSIUM 3.7 mmol/L (3.5-5.1)
[2017-06-03 07:30] VITALS: BP 147/70
[2017-06-03 19:30] VITALS: BP 124/48
[2017-06-04 20:05] VITALS: BP 148/57
[2017-06-05 06:47] LABS: INR 1.1
[2017-06-05 06:52] LABS: CALCIUM 8.9 mg/dL (8.5-10.1); CREATININE 0.8 mg/dL (0.6-1.0); PHOSPHORUS 3.4 mg/dL (2.5-4.9); POTASSIUM 3.9 mmol/L (3.5-5.1)
[2017-06-05 08:08] VITALS: BP 180/84
[2017-06-05 18:05] VITALS: BP 149/69
[2017-06-05 20:18] VITALS: BP 132/56
[2017-06-06 07:05] VITALS: BP 143/60
[2017-06-06 19:40] VITALS: BP 139/53
[2017-06-07 04:36] LABS: HEMOGLOBIN 10.7 gm/dL (12.0-15.0); MCH 30.4 pg (26.0-34.0); MCHC 34.5 g/dL (28.0-37.0); MCV 88.3 fL (80.0-100.0); RBC 3.5 mil/uL (4.20-5.00); RDW 13.8 % (10.5-14.5); WBC 5.5 thou/uL (4.0-11.0)
[2017-06-07 04:44] LABS: INR 1.1; PROTIME 11.6 Seconds (9.3-11.4)
[2017-06-07 04:46] LABS: CALCIUM 8.7 mg/dL (8.5-10.1); CREATININE 0.7 mg/dL (0.6-1.0); POTASSIUM 3.5 mmol/L (3.5-5.1)
[2017-06-07 07:30] VITALS: BP 170/66
[2017-06-07 20:30] VITALS: BP 161/61
[2017-06-08 05:11] LABS: ALBUMIN 2.2 g/dL (3.4-5.0); CALCIUM 8.6 mg/dL (8.5-10.1); CREATININE 0.7 mg/dL (0.6-1.0); PHOSPHORUS 2.9 mg/dL (2.5-4.9); POTASSIUM 4.1 mmol/L (3.5-5.1)
[2017-06-08 07:05] VITALS: BP 181/75
[2017-06-08 20:07] VITALS: BP 151/62
[2017-06-09 07:13] LABS: INR 1.5; PROTIME 15.4 Seconds (9.3-11.4)
[2017-06-09 07:20] VITALS: BP 180/64
[2017-06-09 19:30] VITALS: BP 154/73
[2017-06-10 05:01] LABS: HEMATOCRIT 32.8 % (37.0-47.0); HEMOGLOBIN 10.9 gm/dL (12.0-15.0); MCH 29.9 pg (26.0-34.0); MCHC 33.2 g/dL (28.0-37.0); MCV 90.2 fL (80.0-100.0); PLATELET COUNT 233 thou/uL (150-400); RBC 3.64 mil/uL (4.20-5.00); RDW 13.8 % (10.5-14.5); WBC 5.1 thou/uL (4.0-11.0)
[2017-06-10 05:14] LABS: INR 1.8; PROTIME 18.7 Seconds (9.3-11.4)
[2017-06-10 05:18] LABS: ALBUMIN 2.3 g/dL (3.4-5.0); CALCIUM 8.8 mg/dL (8.5-10.1); CREATININE 0.8 mg/dL (0.6-1.0); MAGNESIUM 1.7 mg/dL (1.8-2.4); PHOSPHORUS 3.1 mg/dL (2.5-4.9); POTASSIUM 3.8 mmol/L (3.5-5.1)
[2017-06-10 05:30] LABS: ABSOLUTE NEUTROPHILS 3.4 thou/uL (1.4-8.2)
[2017-06-10 07:37] VITALS: BP 172/81
[2017-06-11 05:20] LABS: INR 2.4; PROTIME 24.1 Seconds (9.3-11.4)
[2017-06-11 07:00] VITALS: BP 162/59
[2017-06-11] MEDS ORDERED: TORSEMIDE10 MG PO (09:32)
[2017-06-11] MEDS ORDERED: COREG6.25 MG PO (09:32)
[2017-06-11] MEDS ORDERED: COZAAR 25 MG TA25 M2 PO (09:32)
[2017-06-11] MEDS ORDERED: ERGOCALCIF50000 UNIT PO (09:32)
[2017-06-11 09:37] VITALS: BP 162/59
[2017-06-11 10:49] VITALS: BP 162/59
[2017-06-11 11:03] VITALS: BP 162/59
[2017-06-11 11:06] VITALS: BP 162/59
[2017-06-11] MEDS ORDERED: TRAMADOL 50 MG50 MG PO (11:16)
[2017-06-11] MEDS ORDERED: VENTOLIN HFA 1818 GM INH (12:19)
== END 2017-06-11 14:20 | disposition home health service (06) | DRG 947 ==
LOC: ENTRNSPT 06-11 14:03 → EDTRNSPTSTS 06-11 14:04
PROVIDERS: Hospitalist; Internal Medicine Nephrology; Nurse Practitioner; Physical Medicine & Rehabilitation
DX: R53.81 Other malaise (principal); J13 Pneumonia due to Streptococcus pneumoniae; J90 Pleural effusion, not elsewhere classified; E87.1 Hypo-osmolality and hyponatremia; N17.9 Acute kidney failure, unspecified; B37.0 Candidal stomatitis; R78.81 Bacteremia; R44.3 Hallucinations, unspecified; I48.91 Unspecified atrial fibrillation; J43.9 Emphysema, unspecified; R60.9 Edema, unspecified; E87.5 Hyperkalemia; E86.0 Dehydration; K59.00 Constipation, unspecified; M79.671 Pain in right foot; F41.9 Anxiety disorder, unspecified; G31.84 Mild cognitive impairment of uncertain or unknown etiology; R13.10 Dysphagia, unspecified; E55.9 Vitamin D deficiency, unspecified; N18.9 Chronic kidney disease, unspecified; I12.9 Hypertensive chronic kidney disease with stage 1 through stage 4 chronic kidney disease, or unspecified chronic kidney disease; Z91.81 History of falling; Z87.891 Personal history of nicotine dependence; Z79.01 Long term (current) use of anticoagulants; Z28.21 Immunization not carried out because of patient refusal
CPT/HCPCS: 10092; 10112

== ENCOUNTER → 2017-06-22 | Outpatient (CLI) | payer OTHER ==
[~2017-06-22] MED LIST changes: +CEPHALEXIN 250250 M1 PO; +COLACE 100 MG100 MG PO; +ERGOCALCIF50000 UNIT PO; +MIRALAX17 GM PO; +TORSEMIDE10 MG PO; +TRAMADOL 50 MG50 MG PO; +VENTOLIN HFA 1818 GM INH
== END ==
LOC: RAD 06:24
DX: I51.7 Cardiomegaly (principal); L90.5 Scar conditions and fibrosis of skin; J43.9 Emphysema, unspecified

== ENCOUNTER 2017-06-23 05:36 | Inpatient (IN) | payer OTHER ==
[~2017-06-23] VITALS: Ht 162.6 cm; Wt 54.0 kg
[2017-06-23] VITALS (7 sets, daily range): BP systolic 142–170; BP diastolic 57–88
[~2017-06-23 05:36] MED LIST changes: -CEPHALEXIN 250250 M1 PO
[2017-06-23 06:09] LABS: ABSOLUTE NEUTROPHILS 3.2 thou/uL (1.4-8.2); BASOPHILS 0.3 % (0.0-2.0); EOSINOPHILS 1.6 % (0.0-3.0); HEMOGLOBIN 12.3 gm/dL (12.0-15.0); LYMPHOCYTES 23.1 % (24.0-44.0); MCH 30.1 pg (26.0-34.0); MCHC 34.2 g/dL (28.0-37.0); MCV 88.1 fL (80.0-100.0); MONOCYTES 11.9 % (1.0-8.0); PLATELET COUNT 261 thou/uL (150-400); POLYS 63.1 % (36.0-66.0); RBC 4.09 mil/uL (4.20-5.00); RDW 13.9 % (10.5-14.5); WBC 5.2 thou/uL (4.0-11.0)
[2017-06-23 06:20] LABS: CALCIUM 9.6 mg/dL (8.5-10.1); CREATININE 0.7 mg/dL (0.6-1.0); INR 2.3; POTASSIUM 4.3 mmol/L (3.5-5.1)
[2017-06-24] VITALS (7 sets, daily range): BP systolic 128–176; BP diastolic 71–78
[2017-06-24 05:59] LABS: HEMATOCRIT 31.3 % (37.0-47.0); HEMOGLOBIN 10.5 gm/dL (12.0-15.0); MCH 29.8 pg (26.0-34.0); MCHC 33.5 g/dL (28.0-37.0); RBC 3.52 mil/uL (4.20-5.00); RDW 14.6 % (10.5-14.5); WBC 5.3 thou/uL (4.0-11.0)
[2017-06-24 06:07] LABS: CALCIUM 8.7 mg/dL (8.5-10.1); CREATININE 0.8 mg/dL (0.6-1.0); POTASSIUM 3.7 mmol/L (3.5-5.1)
[2017-06-24 06:10] LABS: INR 1.4; PROTIME 14.3 Seconds (9.3-11.4)
[2017-06-24] MEDS ORDERED: CEPHALEXIN 250250 M1 PO (14:44)
[2017-06-24] MEDS ORDERED: COZAAR 25 MG TA25 M2 PO (14:45)
== END 2017-06-24 16:40 | disposition home health service (06) | DRG 813 ==
LOC: ER 05:36 → EROBS 08:42 → 4N 08:42 → ENTRNSPT 06-24 16:24 → 4N 06-24 16:40
PROVIDERS: Emergency Medicine; Hospitalist
PROC: 30233L1 Transfusion of Nonautologous Fresh Plasma into Peripheral Vein, Percutaneous Approach (ICD-10-PCS; principal; 2017-06-23)
PROC: 30233K1 Transfusion of Nonautologous Frozen Plasma into Peripheral Vein, Percutaneous Approach (ICD-10-PCS; principal; 2017-06-23)
DX: D68.32 Hemorrhagic disorder due to extrinsic circulating anticoagulants (principal); E43 Unspecified severe protein-calorie malnutrition; R04.0 Epistaxis; I48.0 Paroxysmal atrial fibrillation; I48.91 Unspecified atrial fibrillation; I11.9 Hypertensive heart disease without heart failure; Z87.891 Personal history of nicotine dependence; Z95.0 Presence of cardiac pacemaker; Z79.01 Long term (current) use of anticoagulants; Z79.82 Long term (current) use of aspirin; Z79.899 Other long term (current) drug therapy; T45.515A Adverse effect of anticoagulants, initial encounter
CPT/HCPCS: 10790

== ENCOUNTER → 2018-06-11 | Outpatient (CLI) | payer OTHER ==
[~2018-06-11] MED LIST changes: +CEPHALEXIN 250250 M1 PO
== END ==
LOC: CAT 09:10
DX: Z13.6 Encounter for screening for cardiovascular disorders (principal); E78.00 Pure hypercholesterolemia, unspecified; I25.10 Atherosclerotic heart disease of native coronary artery without angina pectoris

== ENCOUNTER 2018-07-11 18:44 | Emergency (ER) | payer OTHER ==
[~2018-07-11] VITALS: Ht 165.1 cm; Wt 53.5 kg
[2018-07-11 18:46] VITALS: BP 178/78
[2018-07-11] MEDS ORDERED: COUMADIN 5 MG TA5 M1 PO (19:04)
[2018-07-11] MEDS ORDERED: COUMADIN7.5 MG PO (19:05)
[2018-07-11] MEDS ORDERED: CENTRUM SILVER1 EAC4 PO (19:07)
[2018-07-11] MEDS ORDERED: FISH OIL 1,001000 M2 PO (19:07)
[2018-07-11] MEDS ORDERED: RAW CALCIUM PO (19:07)
[2018-07-11 20:01] LABS: ABSOLUTE NEUTROPHILS 1.8 thou/uL (1.4-8.2); BASOPHILS 1.2 % (0.0-2.0); EOSINOPHILS 4.4 % (0.0-3.0); HEMATOCRIT 38.2 % (37.0-47.0); HEMOGLOBIN 12.9 gm/dL (12.0-15.0); LYMPHOCYTES 33.1 % (24.0-44.0); MCH 30.3 pg (26.0-34.0); MCHC 33.7 g/dL (28.0-37.0); MONOCYTES 11.2 % (1.0-8.0); PLATELET COUNT 151 thou/uL (150-400); POLYS 50.1 % (36.0-66.0); RBC 4.25 mil/uL (4.20-5.00); RDW 15.3 % (10.5-14.5); WBC 3.6 thou/uL (4.0-11.0)
[2018-07-11 20:11] LABS: INR 2.2; PROTIME 22.6 Seconds (9.3-11.4)
== END 2018-07-11 21:15 | disposition home or self-care (01) ==
LOC: ER 18:44
PROVIDERS: Nurse Practitioner Family
DX: S81.812A Laceration without foreign body, left lower leg, initial encounter (principal); I10 Essential (primary) hypertension; I48.91 Unspecified atrial fibrillation; Z79.01 Long term (current) use of anticoagulants; Z87.01 Personal history of pneumonia (recurrent); Z87.891 Personal history of nicotine dependence; W22.8XXA Striking against or struck by other objects, initial encounter; Y93.89 Activity, other specified; Y92.89 Other specified places as the place of occurrence of the external cause; Y99.8 Other external cause status

== ENCOUNTER → 2018-09-21 | Outpatient (CLI) | payer OTHER ==
[~2018-09-21] MED LIST changes: +CENTRUM SILVER1 EAC4 PO; +COUMADIN7.5 MG PO; +FISH OIL 1,001000 M2 PO; +RAW CALCIUM PO
== END ==
LOC: NUC 07:49
DX: R53.83 Other fatigue (principal); I10 Essential (primary) hypertension; Z95.0 Presence of cardiac pacemaker; Z79.899 Other long term (current) drug therapy

== ENCOUNTER → 2018-10-06 | Outpatient (CLI) | payer OTHER | LOC: RAD 10:25 | DX: I13.10 Hypertensive heart and chronic kidney disease without heart failure, with stage 1 through stage 4 chronic kidney disease, or unspecified chronic kidney disease (principal); N18.3 Chronic kidney disease, stage 3 (moderate); M47.814 Spondylosis without myelopathy or radiculopathy, thoracic region; J44.9 Chronic obstructive pulmonary disease, unspecified; Z95.0 Presence of cardiac pacemaker ==

== ENCOUNTER → 2018-12-13 | Outpatient (CLI) | payer OTHER | LOC: CAT 09:04 | DX: J90 Pleural effusion, not elsewhere classified (principal); J98.4 Other disorders of lung; J98.11 Atelectasis; R91.8 Other nonspecific abnormal finding of lung field; I51.7 Cardiomegaly; I25.10 Atherosclerotic heart disease of native coronary artery without angina pectoris; Z95.0 Presence of cardiac pacemaker; Z87.09 Personal history of other diseases of the respiratory system; Z88.8 Allergy status to other drugs, medicaments and biological substances ==

== ENCOUNTER → 2019-03-16 | Outpatient (CLI) | payer OTHER ==
[~2019-03-16] MED LIST changes: +CARVEDILOL12.5 MG PO; +VITAMIN D400 UNIT PO
== END ==
LOC: SJCVC 13:50
DX: Z45.018 Encounter for adjustment and management of other part of cardiac pacemaker (principal); I48.91 Unspecified atrial fibrillation; I11.0 Hypertensive heart disease with heart failure; I50.9 Heart failure, unspecified; J44.9 Chronic obstructive pulmonary disease, unspecified; Z87.891 Personal history of nicotine dependence

== ENCOUNTER 2019-03-20 09:04 | Emergency (ER) | payer OTHER ==
[~2019-03-20] VITALS: Ht 162.6 cm; Wt 53.5 kg
[~2019-03-20 09:04] MED LIST changes: -CARVEDILOL12.5 MG PO; -VITAMIN D400 UNIT PO
[2019-03-20] MEDS ORDERED: CARVEDILOL12.5 MG PO (09:26)
[2019-03-20] MEDS ORDERED: VITAMIN D400 UNIT PO (09:28)
[2019-03-20] MEDS ORDERED: TORSEMIDE10 MG PO (09:28)
[2019-03-20 09:31] LABS: ABSOLUTE NEUTROPHILS 3.1 thou/uL (1.4-8.2); BASOPHILS 0.9 % (0.0-2.0); EOSINOPHILS 3.4 % (0.0-3.0); HEMATOCRIT 40.4 % (37.0-47.0); LYMPHOCYTES 14.6 % (24.0-44.0); MCH 29.6 pg (26.0-34.0); MCHC 32.2 g/dL (28.0-37.0); MCV 91.7 fL (80.0-100.0); MONOCYTES 7.9 % (1.0-8.0); PLATELET COUNT 132 thou/uL (150-400); POLYS 73.2 % (36.0-66.0); RBC 4.41 mil/uL (4.20-5.00); RDW 14.4 % (10.5-14.5); WBC 4.2 thou/uL (4.0-11.0)
[2019-03-20 09:39] LABS: ANION GAP 5 mmol/L (7-16); BUN 23 mg/dL (7-18); CALCIUM 9.9 mg/dL (8.5-10.1); CHLORIDE 97 mmol/L (98-107); CO2 28 mmol/L (21-32); CREATININE 0.8 mg/dL (0.6-1.0); GLUCOSE 137 mg/dL (74-106); POTASSIUM 4.3 mmol/L (3.5-5.1); SODIUM 130 mmol/L (136-145)
[2019-03-20 09:48] LABS: ALBUMIN 3.5 g/dL (3.4-5.0); SGOT 29 U/L (15-37); SGPT 23 U/L (30-65); TOTAL BILIRUBIN 1.2 mg/dL (<0.1-1.0); TOTAL PROTEIN 7.4 g/dL (6.4-8.2); TROPONIN-I <0.06 ng/mL (<0.06)
[2019-03-20 12:57] VITALS: BP 167/77
--- NOTE | 2019-03-21 14:58 | EKG ---
[place] [address] [facility] [place] [address] ELECTROCARDIOGRAM REPORT Name: RIVER HILLMAN [id number] Admission: 03/20/19 Attend Phys: Discharge: 03/20/19 Date of : 32 Report #: [id number] THIS REPORT FOR: //name// [facility] ED Test Date: 2019-03-20 Test Time: 09:15:14 Pat Name: RIVER HILLMAN Department: Room: Gender: F Travel Professional: KF : 1930 Requested By: Nicky Morrison Order Number: [id number] MD: Solomon Law Measurements Intervals [place] Rate: 60 P: [place]: QRS: -78 QRSD: 135 T: 94 QT: 454 QTc: 454 Interpretive Statements Afib/flutter and ventricular-paced rhythm No further analysis attempted due to paced rhythm Baseline wander in lead(s) V4 Compared to ECG 05/20/2017 02:38:58 No significant changes Electronically Signed On 03-21-2019 14:58:00 RETAIL DELIVERY DRIVER by Solomon Law [email or web address] <ELECTRONICALLY SIGNED> By: Solomon Law MD 03/21/19 1458 4 4 Solomon Law MD /EPI
== END 2019-03-20 12:58 | disposition home or self-care (01) ==
LOC: ER 09:04
PROVIDERS: Emergency Medicine
DX: R07.89 Other chest pain (principal); I10 Essential (primary) hypertension; I48.91 Unspecified atrial fibrillation; Z87.891 Personal history of nicotine dependence; Z87.01 Personal history of pneumonia (recurrent)

== ENCOUNTER → 2019-03-21 | Outpatient (CLI) | payer OTHER ==
[~2019-03-21] MED LIST changes: +CARVEDILOL12.5 MG PO; +VITAMIN D400 UNIT PO
== END ==
LOC: SJCVCIMAG 10:27
DX: I08.3 Combined rheumatic disorders of mitral, aortic and tricuspid valves (principal); I48.91 Unspecified atrial fibrillation; I10 Essential (primary) hypertension; I73.9 Peripheral vascular disease, unspecified; I49.5 Sick sinus syndrome; R06.09 Other forms of dyspnea; I44.2 Atrioventricular block, complete; Z92.89 Personal history of other medical treatment; Z95.0 Presence of cardiac pacemaker

== ENCOUNTER → 2019-03-31 | Outpatient (CLI) | payer OTHER | LOC: RAD 09:52 | DX: J98.4 Other disorders of lung (principal); J44.9 Chronic obstructive pulmonary disease, unspecified; Z87.09 Personal history of other diseases of the respiratory system ==

== ENCOUNTER → 2019-04-05 | Outpatient (CLI) | payer OTHER | LOC: SJCVC 13:03 | DX: R94.31 Abnormal electrocardiogram [ECG] [EKG] (principal); I73.9 Peripheral vascular disease, unspecified; I48.21 Permanent atrial fibrillation; J44.9 Chronic obstructive pulmonary disease, unspecified; Z95.0 Presence of cardiac pacemaker; Z79.899 Other long term (current) drug therapy; Z87.891 Personal history of nicotine dependence ==

== ENCOUNTER → 2019-04-18 | Outpatient (CLI) | payer OTHER | LOC: NUC 04-12 10:34 | DX: Z13.820 Encounter for screening for osteoporosis (principal); Z78.0 Asymptomatic menopausal state ==

== ENCOUNTER → 2019-04-22 | Outpatient (CLI) | payer OTHER | LOC: SJCVC 08:59 | DX: Z51.81 Encounter for therapeutic drug level monitoring (principal); I48.91 Unspecified atrial fibrillation; I12.9 Hypertensive chronic kidney disease with stage 1 through stage 4 chronic kidney disease, or unspecified chronic kidney disease; N18.9 Chronic kidney disease, unspecified; M81.0 Age-related osteoporosis without current pathological fracture; Z95.0 Presence of cardiac pacemaker; Z79.01 Long term (current) use of anticoagulants ==

== ENCOUNTER 2019-07-27 13:11 | Inpatient (IN) | payer OTHER ==
[~2019-07-27] VITALS: Ht 162.6 cm; Wt 49.9 kg
--- NOTE | 2019-07-27 16:30 | NUR ---
PT ADMITTED FROM DR BUDDY CAMPO OFFICE...REPORTS INCREASED SHORTNESS OF AIR OVER 1 MONTH AND WEIGHT LOSS OF ABOUT 8 LBS...ADMISSION COMPLETED...
[2019-07-27] MEDS ORDERED: COZAAR 25 MG TA25 M1 PO (16:31)
[2019-07-27] MEDS ORDERED: CALCIUM500 MG PO (16:33)
[2019-07-27] MEDS ORDERED: COQ-1030 MG PO (16:35)
[2019-07-27 17:02] VITALS: BP 190/94
[2019-07-27 17:16] LABS: BASOPHILS 1.3 % (0.0-2.0); EOSINOPHILS 3.4 % (0.0-3.0); HEMATOCRIT 44.7 % (37.0-47.0); HEMOGLOBIN 14.6 gm/dL (12.0-15.0); MCH 30.2 pg (26.0-34.0); MCHC 32.8 g/dL (28.0-37.0); MCV 92.2 fL (80.0-100.0); MONOCYTES 10.4 % (1.0-8.0); PLATELET COUNT 143 thou/uL (150-400); POLYS 60.9 % (36.0-66.0); RBC 4.85 mil/uL (4.20-5.00); RDW 15.6 % (10.5-14.5); WBC 3.3 thou/uL (4.0-11.0)
[2019-07-27 17:30] LABS: APTT 50.4 Seconds (24.5-32.8); INR 3.8; PROTIME 39.6 Seconds (9.3-11.4)
[2019-07-27 17:42] LABS: ALBUMIN 3.6 g/dL (3.4-5.0); ANION GAP 3 mmol/L (7-16); BUN 21 mg/dL (7-18); CALCIUM 9.3 mg/dL (8.5-10.1); CHLORIDE 99 mmol/L (98-107); CO2 31 mmol/L (21-32); CREATININE 0.9 mg/dL (0.6-1.0); GLUCOSE 94 mg/dL (74-106); MAGNESIUM 1.8 mg/dL (1.8-2.4); POTASSIUM 4.5 mmol/L (3.5-5.1); SGOT 36 U/L (15-37); SGPT 30 U/L (30-65); SODIUM 133 mmol/L (136-145); TOTAL BILIRUBIN 1.2 mg/dL (0.2-1.0); TOTAL PROTEIN 7.3 g/dL (6.4-8.2); TROPONIN-I <0.06 ng/mL (<0.06)
[2019-07-27 18:22] LABS: URINE BILIRUBIN NEGATIVE (Negative); URINE BLOOD 1+ (Negative); URINE CLARITY CLOUDY; URINE COLOR YELLOW; URINE GLUCOSE-RANDOM* NEGATIVE (Negative); URINE KETONES NEGATIVE (Negative); URINE NITRITE-REFLEX NEGATIVE (Negative); URINE PROTEIN (DIPSTICK) TRACE (Negative)
[2019-07-27 18:24] LABS: URINE LEUKOCYTES-REFLEX 2+ (Negative)
[2019-07-27 18:31] LABS: CASTS None Seen /LPF (None Seen); CRYSTALS None Seen /LPF (None Seen); SQUAMOUS 0-3 Few /LPF (0-3); URINE RBC 3-10 Few /HPF (0-2); URINE WBC-REFLEX >25 Many /HPF (0-5)
[2019-07-27 19:56] VITALS: BP 170/84
[2019-07-27 23:31] VITALS: BP 162/94; BP 182/94
[2019-07-28 03:45] VITALS: BP 160/88
--- NOTE | 2019-07-28 03:51 | NUR ---
Patient making progress towards outcom goals. Denies pain. Up with standby assist due to IVFluids infusing, otherwise gait steady. Afebrile.Oxygen saturation optimal on room air. BP improved after home BP medications resumed. Rhythm 100% paced. Calls out appropriately for needs. COVID test collected 07/27/19 at 1630 resulted negative tonight. Patient coughing, non productive. Enhanced precautions maintain until re evaluated by infection control.
[2019-07-28 04:56] LABS: ABSOLUTE NEUTROPHILS 1.8 thou/uL (1.4-8.2); BASOPHILS 1.3 % (0.0-2.0); HEMATOCRIT 39.6 % (37.0-47.0); HEMOGLOBIN 13.2 gm/dL (12.0-15.0); LYMPHOCYTES 24.7 % (24.0-44.0); MCH 30.6 pg (26.0-34.0); MCHC 33.4 g/dL (28.0-37.0); MCV 91.5 fL (80.0-100.0); PLATELET COUNT 123 thou/uL (150-400); RBC 4.33 mil/uL (4.20-5.00); RDW 15.3 % (10.5-14.5); WBC 3.1 thou/uL (4.0-11.0)
[2019-07-28 05:04] LABS: INR 3.6; PROTIME 36.8 Seconds (9.3-11.4)
[2019-07-28 05:13] LABS: CALCIUM 8.5 mg/dL (8.5-10.1); CREATININE 0.9 mg/dL (0.6-1.0); MAGNESIUM 1.7 mg/dL (1.8-2.4); TOTAL BILIRUBIN 1.1 mg/dL (0.2-1.0)
[2019-07-28 08:07] VITALS: BP 185/75
--- NOTE | 2019-07-28 08:58 | EKG ---
[facility] [place] [address] ELECTROCARDIOGRAM REPORT Name: RIVER HILLMAN Room #: 360-P ADM IN M.R.#: [id number] Admission: 07/27/19 Attend Phys: Tk Brenner MD Discharge: Date of : 32 Report #: [id number] THIS REPORT FOR: cc: Mandy Roe MD, Nora P. MD Lundgren,Lorenzo Cuellar MD [facility] ~ THIS REPORT FOR: //name// [facility] Test Date: 2019-07-27 Test Time: 18:27:43 Pat Name: RIVER HILLMAN Department: Room: 360 P Gender: F Weather Reporter: JJ : 1930 Requested By: Tk Brenner Order Number: [id number] MD: Lorenzo Jackson Measurements Intervals [place] Rate: 64 P: TN: QRS: 100 QRSD: 142 T: -84 QT: 505 QTc: 521 Interpretive Statements Afib/flut and V-paced complexes No further analysis attempted due to paced rhythm Compared to ECG 03/20/2019 09:15:14 No significant changes Electronically Signed On 07-28-2019 8:56:39 CDT by Lorenzo Jackson [email or web address] <ELECTRONICALLY SIGNED> By: Lorenzo Jackson MD, [facility] 07/28/19 0856 1827 1827 Lorenzo Jackson MD, FAC /EPI
--- NOTE | 2019-07-28 14:05 | NUR ---
INITIAL ASSESSMENT: Received consult. SW reviewed chart and spoke with nursing and attending physician. Pt was a direct admission from her sample grinder's office due to left pleural effusion. Pt is in Enhanced Isolation to r/o COVID-19. Test is negative. SW spoke with pt via phone. Introduced role of SW. Pt is alert/orientated x 4. Pt reports she lives at home with her spouse. Prior to admission, pt was independent with ADLs. Pt does have a walker at home, but does not use it. No steps to enter the house. There are steps to go down to the basement. Pt rarely goes down there. Pt has been to [facility] in the past and has used [facility] for HH services. Pt's PCP is Dr. Mandy Roe. Pt's goal is to return home when medically stable. SW is following to assist as needed with discharge planning.
--- NOTE | 2019-07-28 15:35 | NUR ---
PATIENT COVID RESULTS CAME BACK NEGATIVE. SPOKE WITH ID NURSE AND SHE OKED PATIENT COMING OFF ISOLATION. AND IT IS OK TO MOVE PATIENT OFF UNIT.
--- NOTE | 2019-07-28 16:07 | 2DMMODE ---
[facility] [place] [address] 2 D/M-MODE ECHOCARDIOGRAM Name: RIVER HILLMAN Room #: 360-P ADM IN M.R.#: [id number] Admission: 07/27/19 Attend Phys: Tk Brenner MD Discharge: Date of : 32 Report #: [id number] THIS REPORT FOR: cc: Mandy Roe MD, Nora P. MD Lundgren,Lorenzo Cuellar MD [facility] ~ APPROVED REPORT Study performed: 07/28/2019 14:54:14 EXAM: Comprehensive 2D, Doppler, and color-flow Echocardiogram Patient Location: Bedside Room #: 360 Status: routine BSA: 1.51 HR: 60 bpm BP: 185/98 mmHg Rhythm: Pacemaker Other Information Study Quality: Good Indications Recent plerual effusion, Short of breath. Hx: Pacemaker, Afib, HTN, COPD, PAD. 2D Dimensions RVDd: 34.04 mm IVSd: 12.00 (7-11mm) LVOT Diam: 18.43 (18-24mm) LVDd: 35.15 mm PWd: 12.00 (7-11mm) Ascending Ao: 38.00 (22-36mm) LVDs: 21.66 (25-40mm) Aortic Root: 32.14 mm Volumes Left Atrial Volume (Systole) Single Plane 4CH: 82.15 mL Single Plane 2CH: 105.75 mL LA ESV Index: 65.00 mL/m2 Aortic Valve AoV Peak Onur.: 1.08 m/s AO Peak Gr.: 4.64 mmHg LVOT Max P.00 mmHg LVOT Max V: 0.87 m/s DEAN Vmax: 2.14 cm2 [facility] [address] [place] [address] 2 D/M-MODE ECHOCARDIOGRAM Name: KADYRIVER Room #: 360[facility] IN [facility].#: [id number] Admission: 07/27/19 Attend Phys: Tk Brenner MD Discharge: Date of : 32 Report #: [id number] Vmax: 4.51 m/s AI Stevens: 2.61 m/s2 AI PHT: 500.93 ms Mitral Valve MV Decel. Time: 170.12 ms MV E Max Onur.: 1.00 m/s Pulmonary Valve PV Peak Onur.: 0.62 m/s PV Peak Gr.: 1.53 mmHg Tricuspid Valve TR Peak Onur.: 3.49 m/s RAP Estimate: 10.00 mmHg TR Peak Gr.: 49.00 mmHg PA Pressure: 59.00 mmHg Left Ventricle The left ventricle is normal size. There is normal LV segmental wall motion. Mild concentric left ventricular hypertrophy. Left ventricular systolic function is normal. LVEF is 65%. This study is not technically sufficient to allow evaluation of the LV diastolic function. Right Ventricle The right ventricle is normal size. Right ventricle is mildly hypokinetic. Atria Left atrium is severely dilated. Right atrium is severely dilated. Pacemaker lead is present in the right atrium. Aortic Valve The aortic valve is mildly sclerotic. Mild to moderate aortic regurgitation. There is no aortic valvular stenosis. Mitral Valve Mild mitral annular calcification, mild leaflet thickening. Mild to moderate mitral regurgitation. No evidence of mitral valve stenosis. Tricuspid Valve The tricuspid valve is normal in structure. Severe tricuspid regurgitation. Estimated PAP is 55 mmHg. Pulmonic Valve The pulmonary valve is normal in structure. Trace pulmonic [facility] [place] [address] 2 D/M-MODE ECHOCARDIOGRAM Name: RIVER HILLMAN Room #: 360-P [facility] IN M.R.#: [id number] Admission: 07/27/19 Attend Phys: Tk Brenner MD Discharge: Date of : 32 Report #: [id number] regurgitation. Great Vessels The aortic root is normal in size. The ascending aorta is borderline dilated. IVC is dilated and collapses <50% with inspiration. Pericardium There is no pericardial effusion. Left pleural effusion noted. <Conclusion> Left ventricular systolic function is normal. There is normal LV segmental wall motion. LVEF is 65%. Both atria are severely dilated. Pacemaker lead is present in the right atrium. The aortic valve is mildly sclerotic. Mild to moderate aortic regurgitation, no stenosis. Mild mitral annular calcification, mild leaflet thickening. Mild to moderate mitral regurgitation. Severe tricuspid regurgitation. Estimated pulmonary artery pressure of 55 mmHg. There is no pericardial effusion. Left pleural effusion <ELECTRONICALLY SIGNED> By: Lorenzo Jackson MD, [facility] 07/28/191604 04 04 Lorenzo Jackson MD, FAC /INF
[2019-07-28 17:30] VITALS: BP 174/71
[2019-07-28 20:01] VITALS: BP 143/69
[2019-07-29 03:22] VITALS: BP 157/82
--- NOTE | 2019-07-29 04:04 | NUR ---
SLEPT MOST OF SHIFT WITHOUT COMPLAINTS. TURNS SELF. UP TO BATHROOM AD FRANC. WORKING ON GOALS AND PLAN OF CARE FOR NOC. DENIES COMPLAINTS OF SHORTNESS OF AIR AT THIS TIME. PROGRESSING SLOWLY TOWARDS GOALS FOR AM TEST. CONTINUE TO ASSES.
[2019-07-29 07:24] LABS: INR 1.7; PROTIME 17.4 Seconds (9.3-11.4)
[2019-07-29 07:52] VITALS: BP 170/83
--- NOTE | 2019-07-29 08:22 | NUR ---
ASSUMED CARE OF PT AT SHIFT CHANGE, SHE IS A&0X4, AMB INDEPENDENTLY, CARDIAC MONITORED, ROOM AIR. ORDERS NOTED PRIOR TO BEGINNING OF MY SHIFT FOR STAT FFP, LABS, ETC. COMM VIA [employer]LE W/DR METZ TO UPDATE ON RECENT LABS, THEN REC CALL FROM LAB STATING THEY ARE CANCELING ORDER SHE ISN'T QUALIFIED.LEFT FOR PROCEDURE AROUND 0805, WAS ON PHONE PRIOR AND SLIGHLTY TEARFUL. ENCOURAGED HER TO USE CALL LIGHT FOR ANY NEEDS, WILL CONTINUE TO MONITOR. SEE SEPARATE INTERVENTIONS FOR ASSESSMENTS
[2019-07-29 11:49] VITALS: BP 157/72
--- NOTE | 2019-07-29 14:19 | NUR ---
Chart reviewed and case discussed with the care team. Pt getting tapped today. Up ad yan in her room. No hh or dme need anticipated at this time. Nursing to request therapy evals if needed. Will remain available should dc needs arise.
[2019-07-29 16:20] VITALS: BP 131/56
[2019-07-29 16:45] LABS: CLARITY HAZY; COLOR YELLOW; SOURCE THORACENTESIS; TOTAL VOLUME 160 mL
[2019-07-29 16:51] LABS: BF NUCLEATED CELLS 353 /mm3; BF RBC 812 /mm3
[2019-07-29 17:28] LABS: SOURCE THORACENTESIS
[2019-07-29 17:47] LABS: BF MACROPHAGE 36 %; BF NEUTROPHILS 3 %
[2019-07-29 19:43] VITALS: BP 130/72
--- NOTE | 2019-07-30 03:49 | NUR ---
PT IS PLEASANT ALERT AND ORIENTED X4. LUNGS ARE CLEAR ON ROOM AIR. UP TO BATHROOM WITH ASSIST X1. BANDAID TO BACK AREA FROM THORACENTESIS.DENIES ANY PAIN. STATES SHE FEELS BETTER NOW AFTER HAVING THAT DONE. ATRIAL PACED ON THE RECREATIONAL RESORT MANAGER. WILL CONTINUE NURSING CARE PLAN NO ISSUES OR CONCERNS NOTED AT THIS TIME.
[2019-07-30 03:59] LABS: HEMATOCRIT 40.3 % (37.0-47.0); HEMOGLOBIN 13.3 gm/dL (12.0-15.0); MCH 30.4 pg (26.0-34.0); RBC 4.38 mil/uL (4.20-5.00); WBC 3.7 thou/uL (4.0-11.0)
[2019-07-30 04:46] LABS: INR 1.2; PROTIME 12.7 Seconds (9.3-11.4)
[2019-07-30 04:57] VITALS: BP 140/61
[2019-07-30 05:31] LABS: ALBUMIN 2.8 g/dL (3.4-5.0); CALCIUM 8.5 mg/dL (8.5-10.1); CREATININE 0.9 mg/dL (0.6-1.0); MAGNESIUM 1.6 mg/dL (1.8-2.4); POTASSIUM 3.5 mmol/L (3.5-5.1); TOTAL BILIRUBIN 1.6 mg/dL (0.2-1.0); TOTAL PROTEIN 5.9 g/dL (6.4-8.2)
[2019-07-30 08:00] VITALS: BP 144/70
[2019-07-30 11:30] VITALS: BP 135/64
[2019-07-30] MEDS ORDERED: ACETAMINOPHEN325 M1 PO (13:01)
[2019-07-30] MEDS ORDERED: PEPCID20 MG PO (13:01)
[2019-07-30] MEDS ORDERED: DEMADEX20 MG PO (13:01)
[2019-07-30] MEDS ORDERED: AUGMENTIN 875-1 EACH PO (13:01)
[2019-07-30 13:29] VITALS: BP 135/64
--- NOTE | 2019-07-30 14:10 | NUR ---
ASSUMMED PT CARE AT APPROXIMATELY 0700. PT A&O X4. ASSESSMENT CHARTED. FALL PRECAUTIONS IN PLACE. PT DENIES HAVING CHEST PAIN. PT DENIES HAVING SOB. PT DENIES HAVING ACUTE PAIN. INFORMED DR. METZ OF LOW MG. REPLACEMENT ORDERED AND IMPLEMENTED. PT DISCHARGING HOME C SELF CARE. PT RECEIVED DISCHARGE EDUCATION. PT STATED UNDERSTANDING AND DENIED HAVING FURTHER QUESTIONS. VITAL SIGNS STABLE. PT AMBULATED STEADY AROUND UNIT C/O NEED FOR ASSISTIVE DEVICES. IV DC. TELE DC. PT COMFORTABLE. PT DENIES HAVING FURTHER CONCERNS. PT WILL RECEIVE HOSPITAL TRANSPORT OFF UNIT.
[2019-07-31 12:08] LABS: BODY FLUID ALBUMIN 1.3 g/dL (Not Estab.); BODY FLUID AMYLASE 36 U/L (()); BODY FLUID GLUCOSE 97 mg/dL (()); BODY FLUID LDH 79 IU/L (()); BODY FLUID PROTEIN 2.1 g/dL (())
--- NOTE | 2019-08-02 16:08 | PATH ---
[facility] [address] [place] [address] PATHOLOGY RPT PROCEDURE Name: RIVER HILLMAN Room #: 205-P DIS IN M.R.#: [id number] Admission: 07/27/19 Date of : 32 Discharge: 07/30/19 Report #: [id number] Path Case #: [id number] Note [facility] Accession Number: [id number] TESTS RESULT FLAG UNITS REF RANGE LAB Clinician Provided Cytology Information No. of containers..01 Other (Miscellaneous) Source: PLEURAL FLUID DIAGNOSIS: 02 PLEURAL FLUID NEGATIVE FOR MALIGNANT CELLS. REACTIVE MESOTHELIAL CELLS ARE PRESENT. RED BLOOD CELLS ARE PRESENT. THIS INTERPRETATION INCLUDES EVALUATION OF A CELL BLOCK. Signed out by: 02 Kevin Ruiz MD, Pathologist NPI- [id number] Performed by: 01 Angelica Reza, Grounds Keeper ([facility]) Gross description: 01 30ML, CLEAR YELLOW, 1TP 1CB /LCS 08/01/2019 0613 Local FLAG LEGEND: L-Low Normal,H-High Normal,LL-Alert Low,HH-Alert High <-Panic Low,>-Panic High,A-Abnormal,AA-Critical Abnormal Performed at: [address] [place] [address] Laz Cason MD, [address] [address] Estefanía Lawson MD, Specimen Comment: A courtesy copy of this report has been sent to [phone], [phone] Specimen Comment: [phone], Specimen Comment: Report sent to ,DR JIMENEZ,DR METZ / DR QUARLES Performed at: [address], [place], [place] [id number] MD Laz Cason MD Phone: [phone]
== END 2019-07-30 14:29 | disposition home health service (06) | DRG 193 ==
LOC: RAD 13:11 → 2N 15:04 → 3W 15:04 → 2N 07-28 17:24
PROVIDERS: Internal Medicine Pulmonary Disease; ADMIT Internal Medicine
PROC: 0W9B3ZZ Drainage of Left Pleural Cavity, Percutaneous Approach (ICD-10-PCS; principal; 2019-07-29)
DX: J15.9 Unspecified bacterial pneumonia (principal); R65.11 Systemic inflammatory response syndrome (SIRS) of non-infectious origin with acute organ dysfunction; J91.8 Pleural effusion in other conditions classified elsewhere; N39.0 Urinary tract infection, site not specified; E87.1 Hypo-osmolality and hyponatremia; D68.9 Coagulation defect, unspecified; M80.88XA Other osteoporosis with current pathological fracture, vertebra(e), initial encounter for fracture; I48.21 Permanent atrial fibrillation; J98.11 Atelectasis; D70.9 Neutropenia, unspecified; R79.89 Other specified abnormal findings of blood chemistry; J44.9 Chronic obstructive pulmonary disease, unspecified; I73.9 Peripheral vascular disease, unspecified; I50.9 Heart failure, unspecified; Z20.828 Contact with and (suspected) exposure to other viral communicable diseases; I11.0 Hypertensive heart disease with heart failure; Z79.01 Long term (current) use of anticoagulants; Z79.899 Other long term (current) drug therapy; Z87.01 Personal history of pneumonia (recurrent); Z91.81 History of falling; Z87.891 Personal history of nicotine dependence; I49.5 Sick sinus syndrome
CPT/HCPCS: 10081; 10779; 10879

== ENCOUNTER 2019-08-08 11:23 | Emergency (ER) | payer OTHER ==
[~2019-08-08] VITALS: Ht 162.6 cm; Wt 47.2 kg
[~2019-08-08 11:23] MED LIST changes: -SODIUM CHLORIDE1 GM PO; -TORSEMIDE20 MG PO
[2019-08-08 12:19] VITALS: BP 181/100
== END 2019-08-08 12:22 | disposition home or self-care (01) ==
LOC: ER 11:23
DX: R07.89 Other chest pain (principal); R07.81 Pleurodynia; I10 Essential (primary) hypertension; I48.91 Unspecified atrial fibrillation; Z79.899 Other long term (current) drug therapy; Z79.2 Long term (current) use of antibiotics; Z79.01 Long term (current) use of anticoagulants; Z88.8 Allergy status to other drugs, medicaments and biological substances; Z87.891 Personal history of nicotine dependence

== ENCOUNTER → 2019-08-08 | Outpatient (CLI) | payer OTHER ==
[~2019-08-08] MED LIST changes: +ACETAMINOPHEN325 M1 PO; +AUGMENTIN 875-1 EACH PO; +CALCIUM500 MG PO; +COQ-1030 MG PO; +COZAAR 25 MG TA25 M1 PO; +DEMADEX20 MG PO; +PEPCID20 MG PO; +SODIUM CHLORIDE1 GM PO; +TORSEMIDE20 MG PO
== END ==
LOC: RAD 09:53
PROVIDERS: ATTEND Family Medicine
DX: J90 Pleural effusion, not elsewhere classified (principal); J98.11 Atelectasis; I51.7 Cardiomegaly; Z95.0 Presence of cardiac pacemaker

== ENCOUNTER 2019-08-12 12:26 | Inpatient (IN) | payer OTHER ==
[~2019-08-12] VITALS: Ht 162.6 cm; Wt 50.3 kg
[2019-08-12 12:29] VITALS: BP 165/78
[2019-08-12 13:18] LABS: ABSOLUTE NEUTROPHILS 5.2 thou/uL (1.4-8.2); BASOPHILS 0.8 % (0.0-2.0); EOSINOPHILS 0.2 % (0.0-3.0); HEMATOCRIT 37.3 % (37.0-47.0); HEMOGLOBIN 12.3 gm/dL (12.0-15.0); LYMPHOCYTES 10.5 % (24.0-44.0); MCH 30.5 pg (26.0-34.0); MCV 92.5 fL (80.0-100.0); MONOCYTES 7.6 % (1.0-8.0); PLATELET COUNT 179 thou/uL (150-400); POLYS 80.9 % (36.0-66.0); RBC 4.03 mil/uL (4.20-5.00); RDW 14.4 % (10.5-14.5); WBC 6.4 thou/uL (4.0-11.0)
[2019-08-12 13:30] LABS: ANION GAP 7 mmol/L (7-16); BUN 39 mg/dL (7-18); CALCIUM 9.6 mg/dL (8.5-10.1); CHLORIDE 87 mmol/L (98-107); CO2 27 mmol/L (21-32); GLUCOSE 110 mg/dL (74-106); SODIUM 121 mmol/L (136-145)
[2019-08-12 13:31] LABS: POTASSIUM 5.2 mmol/L (3.5-5.1)
[2019-08-12 13:40] LABS: ALBUMIN 3.3 g/dL (3.4-5.0); SGOT 70 U/L (15-37); SGPT 29 U/L (30-65); TOTAL BILIRUBIN 2.1 mg/dL (0.2-1.0); TOTAL PROTEIN 7.1 g/dL (6.4-8.2); TROPONIN-I <0.06 ng/mL (<0.06)
[2019-08-12 13:48] LABS: APTT 64.7 Seconds (24.5-32.8); INR 3.3; PROTIME 33.5 Seconds (9.3-11.4)
[2019-08-12 14:51] VITALS: BP 143/68
[2019-08-12 15:29] VITALS: BP 158/75
[2019-08-12 17:28] VITALS: BP 160/83
--- NOTE | 2019-08-12 17:57 | NUR ---
PT ARRIVED TO FLOOR VIA WHEELCHAIR AROUND 1540. SHE IS ALERT AND ORIENTED. NO COMPLAINTS AT THIS TIME. SHE IS ON TELE WITH HX OF AFIB AND PACEMAKER. VSSA/RA. POOR APPETITE, ENCOURAGED TO DRINK FLUIDS. PIV INFUSING WITHOUT ISSUES. DENIES NEED FOR MED FOR PAIN. SHE IS STEADY ON HER FEET, BUT A SBA WITH WALKER. CALL LIGHT AND PHONE IN REACH. WILL CONTINUE TO [facility]
[2019-08-12 19:59] VITALS: BP 142/74
[2019-08-13] VITALS (7 sets, daily range): BP systolic 132–163; BP diastolic 68–88
--- NOTE | 2019-08-13 04:18 | NUR ---
Pt. rested quietly at intervals during the night when checked on during frequent rounds. She did have 2 small soft stools this shift. Refused dulcolax suppository. Up to the bathroom with assistance of one and walker. C/o back pain and refused po hydrocodone and warm blanket placed to back. Spoke to Janiya CASTANEDA for any other paon options and she said she wopuld review the chart.
[2019-08-13 06:15] LABS: ABSOLUTE NEUTROPHILS 6.3 thou/uL (1.4-8.2); BASOPHILS 0.3 % (0.0-2.0); HEMATOCRIT 30.4 % (37.0-47.0); HEMOGLOBIN 10.4 gm/dL (12.0-15.0); LYMPHOCYTES 7.1 % (24.0-44.0); MCH 31.9 pg (26.0-34.0); MCHC 34.4 g/dL (28.0-37.0); MCV 92.9 fL (80.0-100.0); MONOCYTES 8.1 % (1.0-8.0); PLATELET COUNT 191 thou/uL (150-400); POLYS 84.5 % (36.0-66.0); RBC 3.27 mil/uL (4.20-5.00); RDW 14.4 % (10.5-14.5); WBC 7.5 thou/uL (4.0-11.0)
[2019-08-13 06:29] LABS: INR 3.3; PROTIME 34.3 Seconds (9.3-11.4)
[2019-08-13 06:34] LABS: CALCIUM 8.9 mg/dL (8.5-10.1); CREATININE 0.9 mg/dL (0.6-1.0); MAGNESIUM 1.6 mg/dL (1.8-2.4)
[2019-08-13 08:46] LABS: URINE BILIRUBIN NEGATIVE (Negative); URINE BLOOD TRACE (Negative); URINE CLARITY CLEAR; URINE COLOR YELLOW; URINE GLUCOSE-RANDOM* NEGATIVE (Negative); URINE KETONES TRACE (Negative); URINE LEUKOCYTES-REFLEX NEGATIVE (Negative); URINE NITRITE-REFLEX NEGATIVE (Negative); URINE PROTEIN (DIPSTICK) TRACE (Negative); URINE SPECIFIC GRAVITY 1.015 (1.005-1.035)
[2019-08-13 10:00] LABS: HEMATOCRIT 26.3 % (37.0-47.0); HEMOGLOBIN 9.1 gm/dL (12.0-15.0)
--- NOTE | 2019-08-13 10:10 | EKG ---
[facility] [place] [facility] [place] [address] ELECTROCARDIOGRAM REPORT Name: RIVER HILLMAN Room #: 454-P ADM IN M.R.#: [id number] Admission: 08/12/19 Attend Phys: Kellen Jean MD Discharge: Date of : 32 Report #: [id number] THIS REPORT FOR: cc: Mandy Roe MD, Nora P. MD Park, Jin S. MD ~ THIS REPORT FOR: //name// [facility] ED Test Date: 2019-08-12 Test Time: 12:59:08 Pat Name: RIVER HILLMAN Department: Room: [facility] Gender: F Jockey'S Agent: sy : 1930 Requested By: Afua Arteaga Order Number: [id number] MD: Evgeny Oates Measurements Intervals [place] Rate: 60 P: CT: QRS: -81 QRSD: 146 T: 87 QT: 493 QTc: 493 Interpretive Statements Afib/flutter and ventricular-paced rhythm No further analysis attempted due to paced rhythm Baseline wander in lead(s) V3 Compared to ECG 07/27/2019 18:27:43 No significant changes Electronically Signed On 08-13-2019 10:09:37 CDT by Evgeny Otaes [email or web address] <ELECTRONICALLY SIGNED> By: Evgeny Oates MD 08/13/19 1009 1259 1259 Evgeny Oates MD /EPI
[2019-08-13 16:32] LABS: HEMATOCRIT 27.3 % (37.0-47.0); HEMOGLOBIN 9.2 gm/dL (12.0-15.0)
--- NOTE | 2019-08-13 20:14 | NUR ---
Assumed pt care this am, pt would complain of pain but would not want totake pain medication since this would make her constipated. Though pt mentioned she had 3 bm's yesterday, pt is forgetful and ambivalent to her needs and wants. Refuses all meals pt believes that was per her son the only medication that will cure her would be the fish soup he has sent her. Pt placed on NPO sa per Dr. Jean, surgical consult made. 3 unbit of FFP done with no adverse reactions noted. Pt did state the feeling of tightness on her left flank, informed Dr. Jean fentanyl was ordered though the pt did not complain of pain. Dr. Jean this was to be given. IR consulted and spoke to Dr. Chicas, Darnell and H to be done alberto 8 hours for 24 hours. Close monitoring to be done at this time. updated on status. Pt is steady on her gait and is able to walk to the toilet and calls appropriately. POC followed, endorsed to the night nurse.
[2019-08-13 21:59] LABS: HEMATOCRIT 26.7 % (37.0-47.0); HEMOGLOBIN 9.2 gm/dL (12.0-15.0)
[2019-08-14 00:59] LABS: HEMATOCRIT 25.2 % (37.0-47.0); HEMOGLOBIN 8.8 gm/dL (12.0-15.0)
--- NOTE | 2019-08-14 03:42 | NUR ---
ASSUMED CARE OF PT AT 1900HRS. PT AOX4 WITH SOME FORGETFULNESS. PT LETS NEEDS BE KNOWN. PT REPORTED SOME PAIN AND WAS TREATED WITH PRN PAIN MEDS. PT REFUSING PO PAIN MEDS DUE TO CONSTIPATION. PT'S H&H IS STEADILY DROPPING AFTER 3XFFP INFUSION. PT WAS ABLE TO GET COMFORTABLE AND SLEEP PART OF THE SHIFT. VSS AND NO S/S OF ACUTE DISTRESS. WILL CONTINUE TO MONITOR FOR CHANGES.
[2019-08-14 04:32] VITALS: BP 137/69
[2019-08-14 06:37] LABS: ALBUMIN 2.8 g/dL (3.4-5.0); CALCIUM 8.8 mg/dL (8.5-10.1); CREATININE 0.9 mg/dL (0.6-1.0); PHOSPHORUS 3.1 mg/dL (2.5-4.9); POTASSIUM 5.2 mmol/L (3.5-5.1)
[2019-08-14 06:41] LABS: PROTIME 11.9 Seconds (9.3-11.4)
[2019-08-14 06:45] LABS: INR 1.2
[2019-08-14 08:51] VITALS: BP 145/69
[2019-08-14 09:06] LABS: HEMATOCRIT 26.3 % (37.0-47.0); HEMOGLOBIN 9.1 gm/dL (12.0-15.0)
[2019-08-14 17:39] LABS: HEMATOCRIT 27.3 % (37.0-47.0); HEMOGLOBIN 9.4 gm/dL (12.0-15.0)
--- NOTE | 2019-08-14 18:24 | NUR ---
Assumed pt care this am, slept for most of the day. Pain was managed with medication (fentanyl) given i the am. WAs initally NPO, informed who referred diet to surgery. Pt does not want to eat food served by the hospital stated she only takes food that her son recommends and makes which is [place] to the hospital. Seen by Dr. Casey, diet placed back to regular. Pt stated pain has gotten much better. Pt is standby, gait is steady and able get to the toilet and aroubnd her room. POC followed with no signs or verbalizations of distress noted.
[2019-08-14 20:04] VITALS: BP 110/60
[2019-08-15 00:06] VITALS: BP 110/60
[2019-08-15 00:49] LABS: HEMATOCRIT 26.9 % (37.0-47.0); HEMOGLOBIN 9.1 gm/dL (12.0-15.0)
[2019-08-15 01:08] LABS: ALBUMIN 2.7 g/dL (3.4-5.0); CALCIUM 8.9 mg/dL (8.5-10.1); CREATININE 1.2 mg/dL (0.6-1.0); PHOSPHORUS 3.2 mg/dL (2.5-4.9); POTASSIUM 5.3 mmol/L (3.5-5.1)
[2019-08-15 01:11] LABS: PROTIME 10.3 Seconds (9.3-11.4)
[2019-08-15 07:15] VITALS: BP 122/56
--- NOTE | 2019-08-15 07:17 | NUR ---
PT AOX4 WITH FORGETFULLNESS. PT DENIES PAIN AND SOB. PT HAS PRN PO NORCO Q4HR AND PRN IV FENTANYL Q4HR AVAILABLE. PT AMBULATES IN ROOM AND TO BATHROOM WITH STANDBY ASSIST. PT NOTED TO HAVE GENERALIZED WEAKNESS. PT INDEPENDENT WITH REPOSITIONING, FREQUENT REPOSITIONING ENCOURAGED.PT IV SITE NOTED TO INFILTRATE, D/C LEFT FA IV, PT REFUSING IV INSERTION REQUESTING TO WAIT TO SPEAK WITH DOCTOR. PT TOLERATING PO INTAKE OF FLUIDS AND REGULAR DIET. PT CONCERNED WITH DISCHARGING SOON. PT DISCUSSED PLAN OF CARE WITH . ENCOURAGED PT TO NOTIFY STAFF FOR ALL NEEDS. CALL LIGHT WITHIN REACH, BED IN LOWEST POSITION. WILL CONTINUE TO MONITOR.
[2019-08-15 08:41] LABS: HEMATOCRIT 27.2 % (37.0-47.0); HEMOGLOBIN 9.1 gm/dL (12.0-15.0)
[2019-08-15 09:06] LABS: ALBUMIN 2.8 g/dL (3.4-5.0); CALCIUM 8.8 mg/dL (8.5-10.1); CREATININE 1.2 mg/dL (0.6-1.0); PHOSPHORUS 3.2 mg/dL (2.5-4.9); POTASSIUM 5.5 mmol/L (3.5-5.1)
--- NOTE | 2019-08-15 14:30 | NUR ---
PT ADMITTED RELATED TO L FLANK PAIN;CONSTIPATION; RECURRENT L PLEURAL EFFUSION. CM REVIEWED CHART AND SPOKE WITH CARE TEAM. CM CALLED AND SPOKE WITH PT AT BEDSIDE THIS DAY. PT IS A&O X4. CM ROLE INTRODUCED. PT INIDCATED SHE WANTED CM TO CALL HER SPOUSE. CM CALLED AND SPOKE WITH PT'S SPOUSE KHURRAM. HE INIDCATED THEY LIVE IN A ONE STORY HOUSE WITH 2 STEPS TO ENTER AND NO STEPS PT USES INSIDE. 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 HE INIDCATED HE ANTICPATES PT RETURNING HOME ONCE MEDICALLY STABLE AND THAT PT HAD BEEN ON SERVICE WITH [facility] PASSENGER SERVICE MANAGER. THEY WOULD LIKE TO RESUME SERVICES WITH THEM UPON DC. CLINICAL UPDATE SENT TO [facility]. CM TO FOLLOW INDICATED WITH DC PLANNING.
[2019-08-15 16:25] VITALS: BP 142/65
--- NOTE | 2019-08-15 18:10 | NUR ---
PT A&X4. TRANSFERS WITH ASSIST X1 TO BSC. TELE IS V PACED. PT HAS PITTING EDEMA. LARGE BRUISE NOTED TO BACK. PT ANTICIPATED ON GOING HOME TODAY THOUGH DR. STUART EXPLAINED TO HER SHE NEEDED MORE MEDICAL ATTENTION. CALL LIGHT W/I REACH, BED ALARM ON.
[2019-08-15 19:29] VITALS: BP 115/44
--- NOTE | 2019-08-16 04:03 | NUR ---
Assumed pt care at 1900. Pt is A/OX4 with forgetfulness noted. VSS.Up w/SBA RW. Pt questioning about her hematoma/bruising how far it has spread,denies pain on area just tightness. Pt has no IV and declined one being placed,stating if it's not necessary to have one she doesn't want to be stuck for one. Pt is V-paced on telemetry,Pacemaker in place. Continent of B&B,refused to take Miralax at reporting BM 08/15/19. Resting quietly in bed at this time no distress noted.
[2019-08-16 04:46] VITALS: BP 141/65
[2019-08-16 06:22] LABS: PROTIME 10.7 Seconds (9.3-11.4)
[2019-08-16 06:37] LABS: ALBUMIN 2.6 g/dL (3.4-5.0); CALCIUM 8.6 mg/dL (8.5-10.1); PHOSPHORUS 2.9 mg/dL (2.5-4.9)
[2019-08-16 06:39] LABS: POTASSIUM 4.2 mmol/L (3.5-5.1)
[2019-08-16 07:08] VITALS: BP 118/48
--- NOTE | 2019-08-16 10:57 | NUR ---
ASSUMED CARE AT 0700. PT IS ALERT AND ORIENTED. VSSA/RA TELE WITH A PACEMAKER. SITTING CHAIR DRINKING AN ENSURE. PT TOLERATING LITTLE PO. FR OF 1.5L WHICH SHE WAS EDUCATED ON. NO PIV ACCESS, PT REFUSING. NO COMPLIANTS THIS AM, WILL CONTINUE TO MONITOR
[2019-08-16] MEDS ORDERED: TORSEMIDE20 MG PO (13:56)
[2019-08-16] MEDS ORDERED: SODIUM CHLORIDE1 GM PO (13:56)
[2019-08-16 14:09] VITALS: BP 118/48
[2019-08-16 16:09] VITALS: BP 118/48
--- NOTE | 2019-08-16 16:28 | NUR ---
PT DISCHARGING TODAY TO HOME WITH [facility] FAXED UPDATE AND DC ORDERS/SUMMARY FOR RESUMPTION OF CARE. SPOKE WITH TONYA IN ADM SHE RECEIVED ORDERS AND WILL NOTIFY PT TIME OF VISITS.
--- NOTE | 2019-08-26 15:17 | HC ---
[facility] [place] [address] CONSULTATION Name: RIVER HILLMAN Room #: 454-P [place] IN M.R.#: [id number] Admission: 08/12/19 Attend Phys: Kellen Jean MD Discharge: 08/16/19 Date of : 32 Report #: [id number] THIS REPORT FOR: cc: Mandy Roe MD, Nora P. MD Al-Absi, Ahmed I. MD ~ CC: Kellen Roe REASON FOR CONSULTATION: Hyponatremia. REASON FOR PRESENTATION: Not feeling well, constipation. HISTORY OF PRESENT ILLNESS: This is a very well-known patient to me. She is an 89-year-old with past medical history of atrial fibrillation, status post AV node ablation, status post permanent pacemaker placement, hypertension, and peripheral vascular disease. She has had issues with recurrent pleural effusion and required a thoracotomy back in 2017. In the late part of June, the patient was admitted for left-sided pleural effusion. She had left-sided thoracentesis with about 800 mL of fluid removed from her lungs. She tends to have recurrent hyponatremia because of her ongoing issues. We have seen this patient back in 2017 for a similar presentation. The patient went home after the procedure was done, she was discharged on 07/30/2019. Ever since, she told me that she has been constipated, feeling weak, lethargic. She also reported to have left-sided abdominal and back and chest pain. noted significant bruising of her left side. She continues to take Coumadin. She is not maintained on hydrochlorothiazide; however, she takes torsemide and losartan. No nonsteroidal anti-inflammatory medications. When the patient presented yesterday, she was found to have significant abdominal hematoma, significant hyponatremia mandating Nephrology consultation. PAST MEDICAL HISTORY: Extensive and includes the followin. Recurrent hyponatremia. 2. History of right-sided pleural effusion with strep pneumonia, empyema, status post thoracotomy and decortication. 3. Left-sided pleural effusion status post thoracentesis on 07/28/2019. 4. Atrial fibrillation. 5. Pacemaker status. 6. Elevated liver enzymes recently. 7. Hypertension. 8. Sick sinus syndrome. 9. Debility. MEDICATIONS: 1. Tylenol. 2. Torsemide. 3. Warfarin. [address] [address] CONSULTATION Name: KADYRIVER JEAN Room #: 454-P [place] IN M.R.#: [id number] Admission: 08/12/19 Attend Phys: Kellen Jean MD Discharge: 08/16/19 Date of : 32 Report #: [id number] 4. Carvedilol. SOCIAL HISTORY: Denies drug or alcohol abuse. Lives independently with her . REVIEW OF SYSTEMS: GENERAL: Significant for weakness and lethargy. CARDIOVASCULAR: Occasional dyspnea on exertion. PULMONARY: No cough or hemoptysis. GASTROINTESTINAL: No nausea or vomiting, but significant constipation. GENITOURINARY: No frequency, no urgency. SKIN: No ulcerations, but significant left-sided flank and chest wall bruising. NEUROLOGICAL: No headache, no dizziness, but significant weakness and lethargy. PHYSICAL EXAMINATION: GENERAL: The patient was alert and oriented. VITAL SIGNS: Blood pressure was 131/73, temperature 36.7. She is awake and oriented x 3. HEAD AND NECK: No jugular venous distention. CHEST: Decreased air entry bilaterally. Extensive bruising on the left side of her chest wall all the way to the midline, extending all the way down to the left flank and left lower abdomen. CARDIOVASCULAR: No rub detected. There is a pacemaker. ABDOMEN: Soft with bruises as described above. EXTREMITIES: Lower extremities, no edema. LABORATORY VALUES: Revealed a sodium of 123, BUN of 5, creatinine of 0.9, magnesium of 1.6. IMAGING: Reviewed. ASSESSMENT, IMPRESSION AND PLAN: 1. Acute hyponatremia in a patient with known severe tricuspid regurgitation, pulmonary hypertension, ongoing issues with left-sided pleural effusion, ongoing issues with abdominal hematoma. 2. History of atrial fibrillation, sick sinus syndrome, post pacemaker. 3. Recent thoracentesis complicated by chest wall, abdominal hematoma. See CT scan for results. 4. Multifactorial hyponatremia, likely related to her ongoing issues. Sodium has been going up. Continue with the normal saline for now. 5. Discontinue warfarin, given the patient's significant hematoma as there is an evidence of active bleeding. 6. Watch blood pressure. 7. Serial hemoglobin. 8. Serial serum sodium. No 3% saline is indicated. This patient does not seem to be a good candidate for long-term anticoagulation [address] [address] CONSULTATION Name: KADYRIVER Room #: 454-P DIS IN M.R.#: [id number] Admission: 08/12/19 Attend Phys: Kellen Jean MD Discharge: 08/16/19 Date of : 32 Report #: [id number] given her instability of gait, liability to have more falls, active bleeding and hematoma. 9. Slow correction of her sodium, 3% is not indicated. 10. Diuresis when medically stable. <ELECTRONICALLY SIGNED> By: Joseph Bernard MD 08/26/19 1517 0830 1007 Joseph Bernard MD /nt
== END 2019-08-16 14:26 | disposition home health service (06) | DRG 913 ==
LOC: ER 12:26 → 4W 14:23 → EROBS 14:23 → 4W 15:40
PROVIDERS: Emergency Medicine; Hospitalist; Nurse Practitioner; Physician Assistant; ADMIT Hospitalist; ATTEND Hospitalist
PROC: 30233M1 Transfusion of Nonautologous Plasma Cryoprecipitate into Peripheral Vein, Percutaneous Approach (ICD-10-PCS; principal; 2019-08-13)
DX: S36.892A Contusion of other intra-abdominal organs, initial encounter (principal); E43 Unspecified severe protein-calorie malnutrition; S22.32XA Fracture of one rib, left side, initial encounter for closed fracture; S32.029A Unspecified fracture of second lumbar vertebra, initial encounter for closed fracture; S32.039A Unspecified fracture of third lumbar vertebra, initial encounter for closed fracture; E87.1 Hypo-osmolality and hyponatremia; M80.88XA Other osteoporosis with current pathological fracture, vertebra(e), initial encounter for fracture; J90 Pleural effusion, not elsewhere classified; Z68.1 Body mass index [BMI] 19.9 or less, adult; I48.20 Chronic atrial fibrillation, unspecified; D62 Acute posthemorrhagic anemia; E87.8 Other disorders of electrolyte and fluid balance, not elsewhere classified; I48.91 Unspecified atrial fibrillation; E86.0 Dehydration; I10 Essential (primary) hypertension; I49.5 Sick sinus syndrome; I07.1 Rheumatic tricuspid insufficiency; E87.5 Hyperkalemia; K59.00 Constipation, unspecified; M54.9 Dorsalgia, unspecified; R74.0 Nonspecific elevation of levels of transaminase and lactic acid dehydrogenase [LDH]; I27.21 Secondary pulmonary arterial hypertension; G47.00 Insomnia, unspecified; X58.XXXA Exposure to other specified factors, initial encounter; Z20.828 Contact with and (suspected) exposure to other viral communicable diseases; Z79.01 Long term (current) use of anticoagulants; Y93.89 Activity, other specified; Z87.01 Personal history of pneumonia (recurrent); Z91.81 History of falling; Z79.899 Other long term (current) drug therapy; Z88.8 Allergy status to other drugs, medicaments and biological substances; Z87.891 Personal history of nicotine dependence; Z95.0 Presence of cardiac pacemaker; Y92.89 Other specified places as the place of occurrence of the external cause; Y99.8 Other external cause status
CPT/HCPCS: 10045; 10047

== ENCOUNTER → 2019-08-22 | Outpatient (CLI) | payer OTHER ==
[~2019-08-22] MED LIST changes: +SODIUM CHLORIDE1 GM PO; +TORSEMIDE20 MG PO
== END ==
LOC: RAD 08:08
PROVIDERS: ATTEND Internal Medicine
DX: J90 Pleural effusion, not elsewhere classified (principal)

== ENCOUNTER → 2019-08-25 | Outpatient (CLI) | payer OTHER | LOC: SJCVC 14:30 | PROVIDERS: ATTEND Internal Medicine Cardiovascular Disease | DX: I48.19 Other persistent atrial fibrillation (principal); I49.5 Sick sinus syndrome; I44.2 Atrioventricular block, complete; J90 Pleural effusion, not elsewhere classified; I73.9 Peripheral vascular disease, unspecified; Z95.0 Presence of cardiac pacemaker; Z79.899 Other long term (current) drug therapy; Z87.891 Personal history of nicotine dependence ==

== ENCOUNTER → 2019-08-31 | Outpatient (CLI) | payer OTHER | LOC: RAD 09:29 | PROVIDERS: ATTEND Internal Medicine | DX: J90 Pleural effusion, not elsewhere classified (principal); I51.7 Cardiomegaly; J98.11 Atelectasis ==

== ENCOUNTER → 2019-09-28 | Outpatient (CLI) | payer OTHER ==
[~2019-09-28] MED LIST changes: +ANORO ELLIPTA1 EACH INH; +CHILDREN'S ASPI81 M1 PO; +COZAAR 25 MG TA25 MG PO; +COZAAR 50 MG TA50 M1 PO; +FISH OIL 1,0001 EAC9 PO; +LASIX 20 MG TAB20 MG PO; +LIDOPATCH1 EACH TRANSDERM; +LORCET 5-325 M1 EACH PO; +ROXICODONE5 M2 PO; +WARFARIN SODIUM5 MG PO
== END ==
LOC: SJCVCIMAG 09:30
PROVIDERS: ATTEND Internal Medicine Cardiovascular Disease
DX: I08.8 Other rheumatic multiple valve diseases (principal); R94.31 Abnormal electrocardiogram [ECG] [EKG]; I11.9 Hypertensive heart disease without heart failure; I45.4 Nonspecific intraventricular block; I44.2 Atrioventricular block, complete; J44.9 Chronic obstructive pulmonary disease, unspecified; I49.5 Sick sinus syndrome; Z95.0 Presence of cardiac pacemaker; Z79.899 Other long term (current) drug therapy; Z87.891 Personal history of nicotine dependence

== ENCOUNTER → 2019-10-03 | Outpatient (CLI) | payer OTHER ==
[~2019-10-03] MED LIST changes: -COZAAR 50 MG TA50 M1 PO; -LASIX 20 MG TAB20 MG PO; -LIDOPATCH1 EACH TRANSDERM; -LORCET 5-325 M1 EACH PO; -ROXICODONE5 M2 PO
== END ==
LOC: RAD 08:21
PROVIDERS: ATTEND Internal Medicine
DX: J90 Pleural effusion, not elsewhere classified (principal); I51.7 Cardiomegaly; J98.4 Other disorders of lung

== ENCOUNTER 2019-10-06 14:02 | Inpatient (IN) | payer OTHER ==
[~2019-10-06] VITALS: Ht 162.6 cm; Wt 54.0 kg
--- NOTE | ~2019-10-06 | EMS ---
[address] [address] EMS Patient Care Report Name: RIVER HILLMAN Room #: REG BHARAT Rivas#: [id number] Admission: 10/06/19 Attend Phys: Discharge: Date of : 32 Report #: [id number] THIS REPORT FOR: //name// Report Transmitted: 10/06/2019 15:29 EMS Care Summary [facility] MED-ACT Incident [id number] @ 10/06/2019 13:20 Incident Location [address] [place] [address] Patient RIVER HILLMAN Male, 89 Years 1930 Patient Address [address] [place] [address] Patient History Hypertension (HTN),Pacemaker/AICD,Atrial Fibrillation, Patient Allergies No known allergies, Patient Medications Carvedilol, Anoro, Losartan, Warfarin, Torsemide, Chief Complaint NAUSEA Disposition Transported No Lights/[place] Dispatch Reason Falls Transported To [facility] Narrative Upon arrival to the patient, the patient appeared to have no immediate life threats. The patient was noted to be CAOX4 with a GCS of 15. The patient was noted to be lying supine in her bed in her bedroom. The patient was with her and FD personnel. The patient???s home was noted to be clean and [address] [address] EMS Patient Care Report Name: RIVER HILLMAN Room #: REG BHARAT Rivas#: [id number] Admission: 10/06/19 Attend Phys: Discharge: Date of : 32 Report #: [id number] well-kept. The patient was noted to be cyanotic and pale. The patient was noted by FD personnel to have an initial SpO2 reading of 81%. The patient is not normally on oxygen. The patient had been placed on oxygen by FD personnel at a rate of four lpm. The patient responded well to this. The patient stated that she has been nauseated for the past three hours. The patient also stated that she has been having problems with her breathing this morning. 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 She stated that this prevents her to breathe deeply. The patient wanted to go to [facility] ER for further care and evaluation. The patient was assisted to a stairchair to move her outside of the home to the cot. The patient was then lifted and placed on the cot, secured, and moved to the ambulance. En route to the ER, vitals were obtained and monitored. The patient was placed on the ekg monitor tech. This revealed a reading of a paced rhythm due to the patient???s pacemaker. The patient was noted to not have a fever. The patient was continued on the oxygen via nasal cannula. Report was called to the ER via radio. The patient was left in room ER 15 with report given to RN. EMS returned to service. END OF REPORT. Initial Vitals @13:45P: 60,SpO2: 96, @13:50P: 78,R: 17,BP: 151/91,Pain: 2/10,GCS: 15,SpO2: 97,Revised Trauma: 12, Assessments @13:38MENTAL:Time Oriented,Person Oriented,Event Oriented,Place Oriented,SKIN:Cyanotic,Pale,HEENT:Eyes: Left Pupil: 3-mm,Eyes: Right Pupil: 3-mm,Head/Face: No Abnormalities,Neck/Airway: No Abnormalities,LUNG SOUNDS:General: No Abnormalities,ABDOMEN:General: No Abnormalities,PELVIS//GI:No Abnormalities,EXTREMITIES:Left Arm: No Abnormalities,Right Arm: No Abnormalities,Left Leg: No Abnormalities,Right Leg: No Abnormalities,PULSE:NEURO:No Abnormalities, Impression Nausea Procedures @13:45Surgical Mask on PatientResponse: Unchanged@13:38StairchairResponse: Unchanged@13:40StretcherResponse: Unchanged@13:40Oxygen FlowRate: 4 Device: Nasal Cannula (NC) Response: ImprovedSucceeded@13:453-Lead ECGResponse: [place] [address] EMS Patient Care Report Name: RIVER HILLMAN BLAYNE Room #: REG BHARAT Rivas#: [id number] Admission: 10/06/19 Attend Phys: Discharge: Date of : 32 Report #: [id number] Timeline 13:18,Call Received 13:18,Psap Call 13:20,Dispatched 13:20,En Route 13:29,On Scene 13:32,At Patient 13:38,Stairchair,Response: Unchanged 13:40,Stretcher,Response: Unchanged 13:40,Oxygen FlowRate: 4 Device: Nasal Cannula (NC) Response: ImprovedSucceeded, 13:45,Surgical Mask on Patient,Response: Unchanged 13:45,3-Lead ECG,Response: UnchangedSucceeded, 13:45,BP: / M,PULSE: 60,RR: R,SPO2: 96 Ox,ETCO2: ,BG: ,PAIN: ,GCS: , 13:46,Depart Scene 13:50,BP: 151/91 M,PULSE: 78,RR: 17 R,SPO2: 97 Ox,ETCO2: ,BG: ,PAIN: 2,GCS: 15, 13:54,At Destination 14:14,Call Closed Disclaimer v1.1 Copyright 2020 [facility] This EMS Care Summary contains data elements from the applicable legal record (which may be displayed differently). It is designed to provide pertinent information for the following purposes: continuity of care, clinical quality, and state data reporting. The complete legal record is available to ED staff and administrators of the receiving hospital in [email or web address]'s Patient Tracker. All data is provided "as is."
[~2019-10-06 14:02] MED LIST changes: -ANORO ELLIPTA1 EACH INH; -CHILDREN'S ASPI81 M1 PO; -COZAAR 25 MG TA25 MG PO; -FISH OIL 1,0001 EAC9 PO; -WARFARIN SODIUM5 MG PO
[2019-10-06 14:08] VITALS: BP 151/82
[2019-10-06 14:38] LABS: ABSOLUTE NEUTROPHILS 7.6 thou/uL (1.4-8.2); BASOPHILS 0.4 % (0.0-2.0); EOSINOPHILS 0.5 % (0.0-3.0); HEMOGLOBIN 14.5 gm/dL (12.0-15.0); LYMPHOCYTES 6.7 % (24.0-44.0); MCHC 32.9 g/dL (28.0-37.0); MCV 97.1 fL (80.0-100.0); MONOCYTES 3.1 % (1.0-8.0); PLATELET COUNT 125 thou/uL (150-400); POLYS 89.3 % (36.0-66.0); RBC 4.54 mil/uL (4.20-5.00); RDW 16.5 % (10.5-14.5); WBC 8.5 thou/uL (4.0-11.0)
[2019-10-06 14:54] LABS: ANION GAP 9 mmol/L (7-16); BUN 27 mg/dL (7-18); CALCIUM 9.1 mg/dL (8.5-10.1); CHLORIDE 100 mmol/L (98-107); CO2 24 mmol/L (21-32); CREATININE 0.9 mg/dL (0.6-1.0); GLUCOSE 130 mg/dL (74-106); POTASSIUM 5.2 mmol/L (3.5-5.1); SODIUM 133 mmol/L (136-145)
[2019-10-06 15:04] LABS: TROPONIN-I <0.06 ng/mL (<0.06)
[2019-10-06 15:12] LABS: APTT 31.5 Seconds (24.5-32.8); INR 1.1; PROTIME 11.4 Seconds (9.3-11.4)
[2019-10-06 16:40] LABS: BE(vivo) 1.4 mmol/L (-2 to +3); HCO3 26.6 mmol/L (22.0-26.0); PO2 68.3 mmHg (80.0-100.0); pH 7.399 (7.360-7.450); sO2 93.6 % (92.0-98.0)
[2019-10-06] MEDS ORDERED: WARFARIN SODIUM5 MG PO (17:53)
[2019-10-06] MEDS ORDERED: ANORO ELLIPTA1 EACH INH (17:53)
[2019-10-06] MEDS ORDERED: FISH OIL 1,0001 EAC9 PO (17:56)
[2019-10-06] MEDS ORDERED: COZAAR 25 MG TA25 MG PO (17:56)
[2019-10-06 21:05] VITALS: BP 130/82
[2019-10-06 22:00] VITALS: BP 158/83
[2019-10-06 22:34] VITALS: BP 147/89
[2019-10-06] MEDS ORDERED: CHILDREN'S ASPI81 M1 PO (23:17)
[2019-10-07 04:15] VITALS: BP 121/72
[2019-10-07 06:47] LABS: HEMATOCRIT 43.4 % (37.0-47.0); HEMOGLOBIN 14.1 gm/dL (12.0-15.0); MCH 31.5 pg (26.0-34.0); MCHC 32.5 g/dL (28.0-37.0); MCV 97.1 fL (80.0-100.0); RBC 4.47 mil/uL (4.20-5.00); RDW 15.6 % (10.5-14.5); WBC 6.6 thou/uL (4.0-11.0)
[2019-10-07 07:05] LABS: CALCIUM 9.3 mg/dL (8.5-10.1); CREATININE 1.2 mg/dL (0.6-1.0); MAGNESIUM 1.8 mg/dL (1.8-2.4); POTASSIUM 4.3 mmol/L (3.5-5.1)
[2019-10-07 07:08] LABS: INR 1.1; PROTIME 11.5 Seconds (9.3-11.4)
[2019-10-07 07:16] LABS: D-DIMER 8.35 ug/mLFEU (0.19-0.50)
--- NOTE | 2019-10-07 07:37 | NUR ---
Arrived from ER around 2224 last night. Medicated for pain with good relief. Assisted to use the commode , pt. is in a lot of pain and requested to just use bedpan last night. V Paced per tele. Maintaining O2 sat greater than 90% on 2L/NC , she does get short of breath with exertion. Pt. stated her nausea has resolved. Will continue to monitor.
[2019-10-07 08:03] VITALS: BP 126/74
--- NOTE | 2019-10-07 09:08 | EKG ---
[facility] [place] [address] ELECTROCARDIOGRAM REPORT Name: RIVER HILLMAN Room #: 356-P ADM IN M.R.#: [id number] Admission: 10/06/19 Attend Phys: Sheila Stephens Discharge: Date of : 32 Report #: [id number] THIS REPORT FOR: cc: Mandy Roe MD, Nora P. 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 : 1930 Requested By: Sundeep Trent Order Number: [id number] MD: Lorenzo Jackson Measurements Intervals [place] Rate: 60 P: 0 MA: 201 QRS: -84 QRSD: 138 T: 94 QT: 519 QTc: 519 Interpretive Statements Ventricular-paced rhythm No further analysis attempted due to paced rhythm Baseline wander in lead(s) V2 Compared to ECG 08/12/2019 12:59:08 No significant change was found Electronically Signed On 10-07-2019 9:08:34 CDT by Lorenzo Jackson [email or web address] <ELECTRONICALLY SIGNED> By: Lorenzo Jackson MD, [facility] 10/07/19 0908 1421 142 Lorenzo Jackson MD, [facility] /EPI
[2019-10-07 11:25] VITALS: BP 111/62
--- NOTE | 2019-10-07 14:11 | NUR ---
INITIAL ASSESSMENT: Received consult for discharge planning. JENNY reviewed chart and spoke with nursing and attending physician. Pt was admitted from home due to SOB. Pt placed in Enhanced Isolation to r/o COVID-19. Test is negative. Pt is afebrile and on 2L of O2. Pt on IV abx and IV steroids. Cardiology consulted. JENNY placed call to pt's room. No answer. JENNY spoke with pt's , Jesus, via phone. Introduced role of SW. Pt and spouse live in their home. 2 steps to enter the home. There are steps down to the basement, but pt does not need to go to the basement. Pt has a cane and walker at home to use if needed. Pt has a nebulizer for breathing treatments. Pt is not on O2 at home. [facility] No hx of post-acute placement. Pt's PCP is Dr. Mandy Roe. No weekend discharge anticipated. Plan is for pt to return home and resume services. Will need orders. Finalized discharge orders/summary will need to be faxed when available. JENNY spoke with intake at to notify of pt's admission. JENNY is following to assist as needed with discharge planning. [facility]--
[2019-10-07 15:42] VITALS: BP 115/69
--- NOTE | 2019-10-07 16:20 | NUR ---
PT CARE ASSUMED APPROX 0700. ASSESSMENTS CHARTED. PT DENIES SOA AND N/V. REPORTS BACK PAIN FROM FALL. PT REPORTS ADEQUATE PAIN MANAGEMENT WITH CURRENT POC. PT HAD MANY QUESTIONS THIS AM REGARDING POC. DENIES QUESTIONS AT THIS TIME. FAMILY GIVEN CLINICAL UPDATES THIS SHIFT. PT REFUSING TO GET OOB DUE TO PAIN. ISOLATION DC'D A MOMENT AGO. WILL ASK FOR BACK XRAY. VSS. NO DISTRESS NOTED.
--- NOTE | 2019-10-07 19:35 | NUR ---
PT TRANSFERRED TO AT THIS TIME. RECEIVING NURSE DENIES QUESTIONS OR CONCERNS REGARDING PT'S POC. PT DENIES WELL. FAMILY AWARE. NO DISTRESS NOTED.
[2019-10-07 20:20] VITALS: BP 117/70
--- NOTE | 2019-10-07 22:34 | NUR ---
PATIENT TRANSFERRED FROM 3W ROOM 356 VIA BED WITH RN. ALERT AND ORIENTED X4. COOPERATIVE WITH CARE. DENIES PAIN. PATIENT ASKED ABOUT HER CELL PHONE WHICH WAS NOT TRANSFERRED WITH HER, HOWEVER, IT WAS FOUND AND RETURNED TO HER. RESTING QUIETLY. WILL MONITOR.
--- NOTE | 2019-10-08 02:55 | NUR ---
PATIENT ALERT AND ORIENTED X4. DENIES PAIN AT TIME OF NOTE. TRANSFER FROM 3W AT BEGINNING OF SHIFT. 2LNC WITHOUT SOA WHILE RESTING. CELL PHONE RETURNED TO PATIENT FROM PREVIOUS ROOM. COOPERATIVE WITH CARE. RESTING QUIETLY AT TIME OF NOTE. WILL MONITOR.
[2019-10-08 04:00] VITALS: BP 105/60
[2019-10-08 05:09] LABS: INR 1.1; PROTIME 11.3 Seconds (9.3-11.4)
[2019-10-08 08:00] VITALS: BP 135/77
[2019-10-08 12:00] VITALS: BP 112/60
[2019-10-08 13:45] VITALS: BP 180/115
--- NOTE | 2019-10-08 18:31 | NUR ---
PT CARE ASSUMED APPROX 0700. ASSESSMENTS CHARTED. PT DENIES SOA, N/V. REPORTS ADEQUATE BACK PAIN MANAGEMENT. AT BEDSIDE THIS SHIFT. BOTH PT AND HER SPOUSE DENY QUESTIONS OR CONCERNS REGARDING POC AFTER CLINICAL UPDATES. VSS. NO DISTRESS NOTED.
--- NOTE | 2019-10-08 18:42 | NUR ---
ATTEMTED TO WEAN OFF O2 THIS SHIFT. ON RA PT FELT COMFORTABLE AND DENIES SOA BUT O2 SAT WAS 86%. 1LNC REPLACED AND PT CAME UP TO 93%
[2019-10-08 20:00] VITALS: BP 119/52
[2019-10-09 04:30] VITALS: BP 156/88
[2019-10-09 05:10] LABS: HEMATOCRIT 41.6 % (37.0-47.0); HEMOGLOBIN 13.8 gm/dL (12.0-15.0); MCH 32.1 pg (26.0-34.0); MCHC 33.2 g/dL (28.0-37.0); MCV 96.8 fL (80.0-100.0); RBC 4.29 mil/uL (4.20-5.00); RDW 15.3 % (10.5-14.5); WBC 9.4 thou/uL (4.0-11.0)
--- NOTE | 2019-10-09 05:16 | NUR ---
ASSUME CARE 1900. PT/VITALS STABLE. INTERMITTENT PAIN INDICATED ESPECIALLY WITH ACTIVITY. PT DENIES PAIN AT REST. POOR TOLERANCE TO ACTIVITY DUE TO PAIN. COULD BENEFIT FROM PT/OT EVAL AND TREATMENT. ASSESSMENT CHARTED. PROGRESSING WELL WITH POC. PLAN IS TO CONTINUE TO WEAN OFF OXYGEN, MANAGE PAIN WELL AND IMPROVE ACTIVITY LEVEL. WILL CONTINUE TO MONITOR AND FOLLOW WITH POC
[2019-10-09 06:38] LABS: INR 1.1; PROTIME 10.9 Seconds (9.3-11.4)
[2019-10-09 08:02] VITALS: BP 151/86
[2019-10-09 11:02] VITALS: BP 110/61
[2019-10-09 15:42] VITALS: BP 126/66
--- NOTE | 2019-10-09 18:47 | NUR ---
ASSUMED CARE AT CHANGE OF SHIFT. ALERT X4, FROM HOME WITH . L2 AND L3 FX MANAGED WITH PAIN MEDS. UP WITH GATE BELT AND WALKER TO CHAIR TODAY WITH THERAPY. TOLERATED BEDSIDE CHAIR FOR AN HOUR. REMAINS ON 1L PRN FOR COMFORT, V PACED IN THE 60'S. USED COMMODE WITH THERAPY, PREFERS BEDPAN. NO BM NOTED. COMPLIANT WITH CARES. PT AND OT TO FOLLOW TOMORROW. CALL LIGHT AND PERSONAL ITEMS IN REACH. CALLS FOR ASSISTANCE.
[2019-10-09 19:56] VITALS: BP 122/69
--- NOTE | 2019-10-10 03:33 | NUR ---
ASSUMED PT CARE AT 1900, PT IS AWAKE, ALERT AND ORIENTEDX4,ASSESSMENTS CHARTED, VSS, REMAINS VPACED ON THE MONITOR WITH UNDELYING A FLUTTER RATE AT 60, REMAINS ON O2 AT 2L VIA NC, DENIES SOB, DENIES CHEST PAIN, NO ACUTE DISTRESS NOTED, PT SLEEPING AT THIS TIME, WILL CONTINUE TO MONITOR
[2019-10-10 04:53] VITALS: BP 134/76
[2019-10-10 04:55] LABS: INR 1.1; PROTIME 10.9 Seconds (9.3-11.4)
[2019-10-10 05:03] LABS: ALBUMIN 2.5 g/dL (3.4-5.0); CALCIUM 8.8 mg/dL (8.5-10.1); CREATININE 1.1 mg/dL (0.6-1.0); PHOSPHORUS 2.7 mg/dL (2.5-4.9); POTASSIUM 4.6 mmol/L (3.5-5.1)
[2019-10-10] MEDS ORDERED: COZAAR 50 MG TA50 M1 PO (08:33)
[2019-10-10] MEDS ORDERED: AUGMENTIN 875-1 EACH PO (08:33)
[2019-10-10] MEDS ORDERED: LORCET 5-325 M1 EACH PO (08:37)
[2019-10-10 09:50] VITALS: BP 123/81
--- NOTE | 2019-10-10 10:46 | NUR ---
PT ON SERVICE WITH [facility] PRIOR TO ADMISSION FAXED CLINICAL UPDATE AND DC ORDERS/SUMMARY SPOKE WITH TRAN IN INTAKE SHE RECEIVED FAX AND WILL NOTIFY PT AND SET UP VISITS.
[2019-10-10 12:14] VITALS: BP 113/63
--- NOTE | 2019-10-10 12:43 | NUR ---
ASSUMED CARE AT CHANGE OF SHIFT, ALERTX4, FROM HOME WITH , ASSIST X1 WITH WALKER, TREATED CONSTIPATION WITH MIRALAX NO BM NOTED AT THIS TIME. PT TO DC HOME WITH HH. REVIEWED DC PAPERWORK AND MEDICATIONS, IV AND TELE REMOVED.
[2019-10-11 19:07] LABS: ANA INTERPRETATION Positive (())
== END 2019-10-10 14:21 | disposition home health service (06) | DRG 291 ==
LOC: ER 14:02 → 2N 22:25 → 3W 22:25 → 2N 10-07 19:48
PROVIDERS: Emergency Medicine; Internal Medicine Cardiovascular Disease; Nurse Practitioner Family; Pediatrics; ADMIT Hospitalist; ATTEND Hospitalist
DX: I13.0 Hypertensive heart and chronic kidney disease with heart failure and stage 1 through stage 4 chronic kidney disease, or unspecified chronic kidney disease (principal); J96.01 Acute respiratory failure with hypoxia; I50.33 Acute on chronic diastolic (congestive) heart failure; S32.10XA Unspecified fracture of sacrum, initial encounter for closed fracture; S32.029A Unspecified fracture of second lumbar vertebra, initial encounter for closed fracture; S32.039A Unspecified fracture of third lumbar vertebra, initial encounter for closed fracture; E87.1 Hypo-osmolality and hyponatremia; J94.2 Hemothorax; I48.21 Permanent atrial fibrillation; S22.43XA Multiple fractures of ribs, bilateral, initial encounter for closed fracture; E46 Unspecified protein-calorie malnutrition; Z20.828 Contact with and (suspected) exposure to other viral communicable diseases; I73.9 Peripheral vascular disease, unspecified; I49.5 Sick sinus syndrome; I27.20 Pulmonary hypertension, unspecified; I08.3 Combined rheumatic disorders of mitral, aortic and tricuspid valves; N39.41 Urge incontinence; M62.84 Sarcopenia; N18.3 Chronic kidney disease, stage 3 (moderate); G47.00 Insomnia, unspecified; Z68.20 Body mass index [BMI] 20.0-20.9, adult; Z95.0 Presence of cardiac pacemaker; Z88.8 Allergy status to other drugs, medicaments and biological substances; Z87.891 Personal history of nicotine dependence; Z79.82 Long term (current) use of aspirin; Z79.899 Other long term (current) drug therapy; Z47.89 Encounter for other orthopedic aftercare; W18.39XA Other fall on same level, initial encounter; Y93.89 Activity, other specified; Y92.89 Other specified places as the place of occurrence of the external cause; Y99.8 Other external cause status
CPT/HCPCS: 10081; 10879

== ENCOUNTER 2019-10-12 06:36 | Inpatient (IN) | payer OTHER ==
[~2019-10-12] VITALS: Ht 160 cm; Wt 49.9 kg
--- NOTE | ~2019-10-12 | EMS ---
[address] [address] EMS Patient Care Report Name: RIVER HILLMAN Room #: 459-P ADM IN M.R.#: [id number] Admission: 10/12/19 Attend Phys: Kellen Jean MD Discharge: Date of : 34 Report #: [id number] THIS REPORT FOR: //name// Report Transmitted: 10/12/2019 19:04 EMS Care Summary [facility] MED-ACT Incident [id number] @ 10/12/2019 06:02 Incident Location [address] [place] [address] Patient RIVER HILLMAN Female, 89 Years 1930 Patient Address [address] [place] [address] Patient History Hypertension (HTN),Back Pain (Chronic), Patient Allergies No known allergies, Patient Medications Coenzyme Q10, ASA, Carvedilol, Chief Complaint back pain Disposition Transported No Lights/[place] [facility] Reason Breathing Problem Transported To [facility] Narrative Upon arrival pt was lying on her bed, presented w/o distress. Pt stated she fell last week and she was diagnosed with L 3 fx. Pt stated this morning she woke up having pain on her lower back and started having difficulty of breathing. Pt lung sounds were cleared with sta of 94% on room air. Pt denied [address] [address] EMS Patient Care Report Name: RIVER HILLMAN Room #: 459-P [facility] IN M.R.#: [id number] Admission: 10/12/19 Attend Phys: Kellen Jean MD Discharge: Date of : 32 Report #: [id number] any chest pain, N&V and dizziness. Pt stated she wanted to be evaluated because her difficulty of breathing. Initial Vitals @PTAP: 60,BP: 201/100,SpO2: 93, @06:30P: 78,R: 18,BP: 193/107,Pain: 6/10,GCS: 15,SpO2: 94,Revised Trauma: 12,[place] Suspected: false Assessments @06:15MENTAL:No Abnormalities,SKIN:No Abnormalities,HEENT:Head/Face: No Abnormalities,Eyes: No Abnormalities,Neck/Airway: No Abnormalities,LUNG SOUNDS:General: No Abnormalities,Left Upper: No Abnormalities,Right Upper: No Abnormalities,Left Lower: No Abnormalities,Right Lower: No Abnormalities,ABDOMEN:General: No Abnormalities,Left Upper: No Abnormalities,Right Upper: No Abnormalities,Left Lower: No Abnormalities,Right Lower: No Abnormalities,PELVIS//GI:No Abnormalities,EXTREMITIES:Left Arm: No Abnormalities,Right Arm: No Abnormalities,Left Leg: No Abnormalities,Right Leg: No Abnormalities,PULSE:NEURO:No Abnormalities, Impression Back Pain 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 It is designed to provide pertinent information for the following purposes: continuity of care, clinical quality, and state data reporting. The complete legal record is available to ED staff and administrators of the receiving hospital in [employer]'s Patient Tracker. All data is provided "as is."
[~2019-10-12 06:36] MED LIST changes: +ANORO ELLIPTA1 EACH INH; +CHILDREN'S ASPI81 M1 PO; +COZAAR 25 MG TA25 MG PO; +COZAAR 50 MG TA50 M1 PO; +FISH OIL 1,0001 EAC9 PO; +LORCET 5-325 M1 EACH PO; +WARFARIN SODIUM5 MG PO
[2019-10-12 06:37] VITALS: BP 190/98
[2019-10-12 07:24] LABS: HEMATOCRIT 47.2 % (37.0-47.0); HEMOGLOBIN 15.6 gm/dL (12.0-15.0); MCH 31.7 pg (26.0-34.0); MCV 96.2 fL (80.0-100.0); PLATELET COUNT 141 thou/uL (150-400); RDW 15.3 % (10.5-14.5); WBC 9.8 thou/uL (4.0-11.0)
[2019-10-12 07:41] LABS: CALCIUM 9.2 mg/dL (8.5-10.1); CREATININE 0.9 mg/dL (0.6-1.0); POTASSIUM 4.3 mmol/L (3.5-5.1)
[2019-10-12 09:16] LABS: ABSOLUTE NEUTROPHILS 8.4 thou/uL (1.4-8.2)
[2019-10-12 09:18] LABS: ANISOCYTOSIS 1+
[2019-10-12 19:16] VITALS: BP 156/85
--- NOTE | 2019-10-12 19:29 | NUR ---
Called 4th floor to give report but was told RN getting report and will call when she has time
[2019-10-12 19:36] VITALS: BP 149/78
[2019-10-12 21:43] VITALS: BP 120/51
--- NOTE | 2019-10-13 00:05 | NUR ---
PATIENT ADMITTED TO ROOM 459 PER CART. IS ALERT X 4. SKIN WARM AND DRY. RESP EVEN AND UNLABORED. DENIES ANY SOA. LUNGS DISM. HAS A IV SL IN RIGHT FA FLUSHES WELL. FELL AT HOME AND HAS A L3 COMPRESSION FX. HAS A PACEMAKER. TAKEING A REGULAR DIET, HAS LOST WEIGHT LAST FEW MONTHS. LEFT ARM HAS A HEMATOMA AND IS EDEMATOUS AND VERY BRUISED. RIGHT FA HAS ON IV AND IS BRUISED WHERE THE IV IS. NO OTHER SKIN ISSUES EXCEPT BRUISING NOTED. 02 AT 2LNC. GAMBINO INTACT WITH MAR URINE. FELL AT HOME ON THE 10/06/19. WAS DC FROM HOSPITAL AND WENT HOME AND WAS UNABLE TO CARE FOR HERSELF AT HOME WITH HOME HEALTH. ABDOMEN SOFT AND HAD A SMALL BM TONIGHT WITH HARD STOOL NOTED. APACED. HR IRREGULAR AT TIMES. CONT PLAN OF CARE.ALL MEDS AND PAIN MED GIVEN WITH SOME RELIEF.
--- NOTE | 2019-10-13 03:44 | NUR ---
PIOCTURES DONE AND ON CHART. DR CALLED AND PATIENT SKIN VERY DRY AND TURGOR VERY POOR. NEW ORDERS FOR NS AT 75CC/HR. REMAINS DENING ANY PAIN TO BACK AREA.
--- NOTE | 2019-10-13 05:11 | NUR ---
LEFT MESSAGE FOR DR YAP FOR CONSULT FOR INTRACTABLE PAIN, L3 FRACTURE OF SPINE.
[2019-10-13 05:16] VITALS: BP 115/57
[2019-10-13 06:18] LABS: ABSOLUTE NEUTROPHILS 6.3 thou/uL (1.4-8.2); BASOPHILS 0.2 % (0.0-2.0); EOSINOPHILS 1.1 % (0.0-3.0); HEMATOCRIT 42.5 % (37.0-47.0); HEMOGLOBIN 14.1 gm/dL (12.0-15.0); LYMPHOCYTES 6.6 % (24.0-44.0); MCHC 33.1 g/dL (28.0-37.0); MCV 96.7 fL (80.0-100.0); PLATELET COUNT 122 thou/uL (150-400); POLYS 87.1 % (36.0-66.0); WBC 7.2 thou/uL (4.0-11.0)
[2019-10-13 06:37] LABS: CALCIUM 8.8 mg/dL (8.5-10.1); CREATININE 0.8 mg/dL (0.6-1.0); POTASSIUM 4.3 mmol/L (3.5-5.1)
[2019-10-13 07:26] VITALS: BP 146/64
--- NOTE | 2019-10-13 12:18 | NUR ---
SPOKE WITH PATRICK IN [facility] THEY DENIED REFERRAL THEY ARE AT [facility] WITH [facility]MS PT'S. DP TO FOLLOW.
--- NOTE | 2019-10-13 15:24 | NUR ---
Patient wants her folye catheter out, Dr. Miranda levy, awaiting response.
[2019-10-13 15:43] VITALS: BP 104/55
--- NOTE | 2019-10-13 16:30 | NUR ---
PT ADMITTED RELATED TO FELL AT HOME, UNABLE TO CARE FOR SELF AT HOME. CM REVIEWED CHART AND SPOKE [facility] CARE TEAM. PT HAD DISCHARGED FROM [facility] 10/10/19 WITH [facility] . PT READMITTED AND IT HAD BEEN INDICATED THAT PT NEEDS PLACEMENT. CM MET WITH PT AND SPOUSE AT BEDSIDE THIS DAY. THEY ARE A&O X4. CM ROLE INTRODUCED. THEY ;ALEXX IN A HOUSE 2 STEPS TO ENTER NONE PT'S USES INSIDE. REFERRAL HAD BEEN SENT TO [facility] AND THEY CAN'T ACCEPT. THEY WERE INTERESTED IN 5N BUT THEY RECOMMEND SKILLED AND [employer] WON'T AUTH ACUTE WHICH THEY HAVE BEEN NOTIFIED OF BY CM AND 5N LIAISON. CM PROVIED SKILLED [employer] LIST FOR THEIR REVIEW. CM TO FOLLOW UP TO SEE WHERE ELSE THEY WANT REFERRALS SENT.
--- NOTE | 2019-10-13 19:54 | NUR ---
Patient che out at 1605, urinated small volume since then.
[2019-10-13 19:57] VITALS: BP 95/54
[2019-10-13 22:08] LABS: URINE BILIRUBIN NEGATIVE (Negative); URINE BLOOD NEGATIVE (Negative); URINE CLARITY CLEAR; URINE COLOR YELLOW; URINE GLUCOSE-RANDOM* NEGATIVE (Negative); URINE KETONES NEGATIVE (Negative); URINE NITRITE-REFLEX NEGATIVE (Negative); URINE PROTEIN (DIPSTICK) NEGATIVE (Negative)
[2019-10-13 22:10] LABS: URINE LEUKOCYTES-REFLEX 1+ (Negative)
[2019-10-13 22:17] LABS: BACTERIA-REFLEX None Seen /HPF (None Seen); CRYSTALS None Seen /LPF (None Seen); HYALINE CASTS 0-3 Few /LPF (None Seen); MUCUS 0-3 Light strn/LPF (None Seen); SQUAMOUS 0-3 Few /LPF (0-3); URINE RBC None Seen /HPF (0-2); URINE WBC-REFLEX 0-5 Rare /HPF (0-5)
[2019-10-14 04:04] VITALS: BP 118/65
--- NOTE | 2019-10-14 05:39 | NUR ---
ASSUMED PT CARE AT [facility] 1900.MULTIPLE BRUISING NOTED ON HER ARMS.PT ABLE TO URINATE AFTER GAMBINO OUT,UA SENT TO THE LAB.PT ON 2L/NC.PT C/O CONSTIPATION BUT STATED THAT SHE HAD A HARD FORMED BM THE PREVIOUS SHIFT.PT REQUESTED TO USE THE BEDPAN BUT WAS NOT ABLE TO HAVE A BM.PT CONT ON SCHEDULED STOOL SOFTNER.PT RESTING ON HER BED AT THIS TIME.FALL PRECAUTIONS IN PLACE,CALL LIGHT WITHIN REACH.
[2019-10-14 07:47] VITALS: BP 112/58
--- NOTE | 2019-10-14 08:48 | NUR ---
Calorie count shows pt eating 100% of meals and drinking glucerna shakes. Discontinue calorie count.
--- NOTE | 2019-10-14 11:47 | NUR ---
ASSUMED CARE AT 0700. PT IS ALERT AND ORIENTED/FORGETFUL. VSSA/2L O2. PACEMAKER IN PLACE. GI/ H/O POOR PO, CONSTIPATION. BOTH IMPROVING. TOLERATING DIET. CALORIE COUNT. PIV INFUSING. NO C/O PAIN. LEFT ARM WITH BANDAGES THAT ARE C/D/I. FALL PRECAUTIONS IN PLACE. EDUCATED PT TO CALL IF NEEDS ARISE. CALL LIGHT IN REACH. WILL CONTINUE TO MONITOR
--- NOTE | 2019-10-14 11:48 | NUR ---
CM FOLLOWED UP WITH PT AND SPOUSE AT BEDSIDE THIS MORNING CM HAD INFORMED THEM YESTERDAY AFTERNOON THAT [facility] IS OON WITH [employer] AND WOULD BE $337.50 PER DAY SHOULD THEY GO THERE. CM HAD PROVIDED THEM WITH [employer]ET[employer] SNF LIST AND MARKED FACILITIES THAT WE SEND REFERRALS TO REGULARY AND THAT DON'T HAVE COVID IN HOUSE. CM ASKED IF THEY HAD SELECTED FACILITIES THEY WANTED REFERRALS SENT TO. THEY SAID NO THAT THEY WANTED [facility]. CM AGAIN INDICATED THAT [facility] DECLINED ADMISSION BASED OF THE LEVEL OF AQUITY OF PATIENTS THEY CURRENTLY HAVE IN HOUSE THEY DIDN'T THINK THEY COULD MEET PT'S NEEDS. THEY SAID THEN THEY WANTED 5N CM AGAIN REITERATED THAT [employer] WOULDN'T AUTH ACUTE REHAB AND THAT OUT ACUTE REHAB HAD RECOMMENDED SKILLED AT PT WASN'T MEDICALLY COMPLEX ENOUGH FOR ADMISSION. THEY INDICATED THEY WANTED THEM TO SUBMIT FOR AUT ANYWAY AND SEE. CM INDICATED THAT CM WOULD HAVE TO SPEAK WITH ACUTE REAHB TEAM TO SEE IF THEY WERE AGREEABLE TO EVEN DO THAT PT DOESN'T EVEN MEET CRITERIA FOR ADMISSION. CM AWAITING THEIR RESPONSE. CM TO FOLLOW INDICATED WITH DC PLANNING.
[2019-10-14] MEDS ORDERED: PEPCID20 MG PO (12:50)
[2019-10-14] MEDS ORDERED: LIDOPATCH1 EACH TRANSDERM (12:50)
[2019-10-14] MEDS ORDERED: LASIX 20 MG TAB20 MG PO (12:51)
--- NOTE | 2019-10-14 14:00 | NUR ---
SPOKE WITH JUNIOR SYSTEMS ANALYST FOR PATIENT. PATIENT FIRM ON DESIRE TO ADMIT TO 5N ACUTE REHAB. AFTER DISCUSSION BETWEEN AMBULANCE DRIVER, ANDREW Jones NP, AND JUNIOR SYSTEMS ANALYST, DECISION MADE FOR 5N TO ATTEMPT TO GET ACUTE REHAB AUTHORIZATION. [facility] CALLED AND AUTHORIZTION PROCESS INITIATED WITH CLINICAL INFORMATION SENT TO [facility]. WILL AWAIT RESPONSE. EXPECT RESPONSE AT EARLIEST ON 10/17/19.
[2019-10-14 20:30] VITALS: BP 120/66
--- NOTE | 2019-10-15 05:59 | NUR ---
PATIENT ALERT AND ORIENTED X4 WITH SOME FORGETFULNESS. DENIES PAIN. NO STOOLS DURING THE NIGHT. COOPERATIVE AND PLEASANT. STATES THAT SHE WILL TRY TO GET TO THE BSC DURING THE DAY. RESTING QUIETLY. WILL MONITOR.
[2019-10-15 09:06] VITALS: BP 124/65
--- NOTE | 2019-10-15 15:57 | NUR ---
Received awake on bed. Due medications given as prescribed, able to swallow meds w/o difficulty. On O2 at 2lpm via nasal cannula. With pacemaker, not on telemtry; no complaints of chest pain, crushing sensation and heaviness. On heart healthy diet- encouraged and assisted in eating and drinking; no nausea, no vomiting and no abdominal pain noted. Continent of bowel and bladder, able to use bedpan and bedside commode at times with assistance of 1-2, using gait belt. Falls bundle in place. With SL at L FA. Complained of pain, due PRN pain medication given as prescribed. With at bedside, update given. A/w insurance authorization for 5N, as per W/E CM- possible transfer to 5N on Thursday. To continue monitoring patient.
[2019-10-15 16:02] VITALS: BP 118/56
[2019-10-15 19:34] VITALS: BP 132/70
--- NOTE | 2019-10-16 05:13 | NUR ---
patient aox3 makes needs known. patient continent this shift pericare and barrier cream applied as needed. patient encouraged fluids. patient on 2L of no soa of distress noted this shift. patient in bed asleep at this time breathing regular and unlaboured.
[2019-10-16 16:38] VITALS: BP 148/66
[2019-10-16 19:25] VITALS: BP 102/48
--- NOTE | 2019-10-16 19:58 | NUR ---
Assumed patient care at 0715. Vital signs stable, LSCTA, Alert and Oriented x's 3, skin is clean, warm, dry and intact. Patient is on O2 @ 1 Liter per nc (Dr Jean would like her to be off of Oxygen but her Sats need to be at least 92%). She had a normal BM today. She has requested and received Hydrocodone x's 2 during this shift. has been at bedside most of the day. Patient was disappointed that she did not have any Physical Therapy today; she is very eager to work on Re-hab. Report given to on-coming nurse.
--- NOTE | 2019-10-17 01:46 | NUR ---
PATIENT AOX3 MAKES NEEDS KNOWN. PATIENT DENIED PAIN OR DISCOMFORT THIS SHIFT. PATIENT USES A BED OLIVER THIS SHIFT.PATIENT IS CONTINENT OF BOWEL AND BLADDER THIS SHIFT,PERICARE AND BARRIER CREAM APPLIED NEEDED. PATIENT IS ON ROOM AIR THIS SHIFT. FALL PRECAUTION IN PLACE. PATIENT IN BED ASLEEP AT THIS TIME BREATING REGULAR AND UNLABOURED.
[2019-10-17 07:17] VITALS: BP 137/64
--- NOTE | 2019-10-17 13:18 | NUR ---
RECEIVED CALL FROM PAMELA AT [facility]. INSURANCE HAS DENIED ACUTE REHAB. PEER TO PEER MAY BE COMPLETED AT [phone] OPTION 4. MUST SET UP BY 4:30 PM TODAY IF DESIRED. INFO COMMUNICATED TO CASE MGMT. IF NEEDED, PAMELA'S NUMBER AT [facility] IS [phone]. THANK YOU FOR THIS REFERRAL.
--- NOTE | 2019-10-17 14:11 | NUR ---
CM NOTIFIED THAT [employer] DENIED ACUTE REHAB AT [facility] THIS DAY. THEY HAD PROVIDED INFO FOR PEER TO PEER. CM MET WITH PT AND SPOUSE AT BEDSIDE THIS AFTERNOON AND NOTIFIED THEM. THEY INDICATED THAT THEY WANTED PHYSICIAN TO COMPLETE PEER TO PEER IF SHE WAS WILLING. CM AGAIN PROVIDED [employer]ETNA SNF LIST AND AGAIN REITERATED THAT THEY NEEDED TO PICK SKILLED FACILITIES THEY WERE INTERESTED IN PT GOING TO AND THEY AGAIN INDICATED THEY WERE ONLY INTERESTED IN [facility]. DR. FLORES INDICATED SHE AGREES WITH ACUTE DENIAL AND WON'T COMPLETE PEER TO PEER. REFERRAL TO BE RESENT TO [facility]. CM AWAITING DETERMINATION.
--- NOTE | 2019-10-17 15:18 | NUR ---
FAXED REFERRAL TO [facility] SPOKE WITH PATRICK IN ADM THEY DENIED REFERRAL. DP TO FOLLOW.
[2019-10-17 15:24] VITALS: BP 141/87
[2019-10-17 20:31] VITALS: BP 154/90
--- NOTE | 2019-10-17 20:31 | NUR ---
Assumed patient care at 0715. Vital signs stable, LSCTA (diminished), RT did testing on patient. They determined that patient no longer needs Oxygen. Patient has been requesting for it to be back on, states "it's a comfort thing for me." Dr Jean visited with patient and this evening. Dr Jean informed them that patient does not qualify for Re-hab on [address], that patient needs to go to a longterm facility, as cannot take care of her at home. became upset, replied "I can too take care of her at home!" Patient informed this nurse that "I am not doing well and not going to be around much longer", and, "my is staying here all night with me." was crying. This nurse and noc shift nurse told them that we would need to discuss with our hospital supervisor. This nurse contacted Supervisor Plating And Point Assembly Director, Cristiane, to inform her of this information.
--- NOTE | 2019-10-18 05:00 | NUR ---
Assumed pt care at 1900. A/OX3,able to make needs known. VSS. C/o back pain medicated with Tylenol with relief reported. Pt verbalized feeling like was not going to make it for long and wanted the spouse to stay overnight;explained to them about protocols on visitation several times and that he needed to leave as pt was in stable condition, agreeable to leave. Fall precautions in place,voiding per bedpan. Up with assist of 2 to BSC.
[2019-10-18 07:47] VITALS: BP 185/85
--- NOTE | 2019-10-18 10:09 | NUR ---
CM FOLLOWED UP WITH PT AND SPOUSE THIS DAY AND INDICATED THAT [facility] DENIED ADMISSION AGAIN. CM ASKED WHERE ELSE THEY WANTED REFERRALS SENT. THEY WERE AGREEABLE WITH LOOKING AT THE [facility] AND [facility]. CM INDICATED [facility] IS TIGHT ON BEDS. REFERRALS TO BE SENT. CM TO FOLLOW INDICATED. PT IS MEDICALLY STABLE JUST NEED SNF AUTH.
--- NOTE | 2019-10-18 10:45 | NUR ---
FAXED REFERRAL TO [facility] SPOKE WITH NADIRA IN ADM SHE RECEIVED REFERRAL AND WILL REVIEW. DP TO FOLLOW.
[2019-10-18] MEDS ORDERED: ROXICODONE5 M2 PO (11:00)
[2019-10-18 11:42] VITALS: BP 185/85
[2019-10-18 11:48] VITALS: BP 185/85
--- NOTE | 2019-10-18 13:37 | NUR ---
PT IS A&OX4, VSS. PT HAS PAIN IN LOWER BACK, CONTINENT, AMBULATES WITH ONE PERSON ASSIST. PT HAD BM, REGULAR DIET. NO IV. FALL PRECAUTION IN PLACE. PT IS TO D/C TODAY.
--- NOTE | 2019-10-18 15:41 | NUR ---
[facility] ABLE TO ACCEPT AND HAD SUBMITTED FOR AUTH. [facility] INDICATED THEY HAD BED. CM NOTIFIED PT AND SPOKE AND THEY INDICATED THAT PLAN HAD SINCE CHANGED AND THAT THEY WANTED FOR PT TO DC HOME WITH HOME HEALTH SERVIES AND 24/7 SUPERVISION AND ASSISTANCE FROM THEIR 7 KIDS. CM CALLED AND SPOKE WITH DTR. SUNIL WHO LIVES IN [place] AND SUNIL WHO LIVES IN [facility]. THEY BOTH INDICATED THAT THE PLAN IS FOR THEM WELL SON WHO LIVES LOCALLY AND IS NURSE AT ID AND SON WHO LIVES LOCALLY AND IS A PT WELL SON KEVON PATEL IN [place] ([phone] TO ALL TAKE WEEK LONG SHIFTS TO PROVIDE 24/7 SUPERVISION AND ASSISTANCE IN THE HOME UPON DC. THEY ARE LOOKING TO GET PT A HOSPITAL BED.. PT WOULD QUALIFY FOR ONE THROUGH INSURANCE WITH PROPER DOCUMENTATION. CM CONVEYED THIS TO PHYSICIAN AND [facility] THEY INDICATED THAT ONE COULD POTENTIALLY BE DELIVERED SOON THURDAY AFTERNOON. CM NOTIFIED PHYSICIAN AND SHE INDICATED WE WOULD DISCUSS TOMORROW. PT HAD BEEN ON SERVICE WITH [facility] SECURITY INSPECTOR. REFERRAL TO BE SENT TO THEM FOR REVIEW. CM TO FOLLOW INDICATED WITH DC PLANNING.
[2019-10-18 20:10] VITALS: BP 108/52
[2019-10-19 07:36] VITALS: BP 126/63
--- NOTE | 2019-10-19 08:09 | NUR ---
Assumed pt care at 1900. A/OX4,VSS,medicated for pain with Oxy cith relief reported. Voiding per Bedpan w/o any problems voiced. Refused HS laxatives but wants them in AM. Bruising persists on LUE/RUE. Fall precations in place. On 0.5L/NC O2 for comfort.
--- NOTE | 2019-10-19 09:47 | NUR ---
FAXED REFERRAL TO [facility] SPOKE WITH SIXTO IN INTAKE THEY RECEIVED REFERRAL AND WILL REVIEW.
--- NOTE | 2019-10-19 13:46 | NUR ---
Received awake on bed. Due medications given as prescribed, able to swallow meds w/o difficulty. On O2 at 2lpm via nasal cannula- weaned off, saturating at 96% on room air. A+O3-4, forgetful. On MS, not on telemetry; no complaints of chest pain, crushing sensation and heaviness. Assisted in ADLs. On heart healthy diet- tolerating well; no nausea, no vomiting and no abdominal pain; pt and her complaining of poor intake from patient- computerized mill mill recorder consult placed; pt seen and examined by Technology Development Intern today. Continent of bowel and bladder- able to use bedpan. Falls bundle in place. Pt refusing to be turned at times. Complained of pain, due PRN pain medications given as prescribed; may refuse at times, requesting to have Tramadol- informed pt that it needs to be prescribed by physician- Dr Jean informed re: pain medications. Pt with swelling and bruise on her L arm from her previous fall- Dr Jean informed, to place ice pack and keep elevated.
--- NOTE | 2019-10-19 14:31 | NUR ---
CM ORDERED HOSPITAL BED THROUGH [facility]. THEY ARE LOOKING TO SEE WHEN THEY MIGHT BE ABLE TO SCHEDULE DELIVERY. PHYSICIAN HAS ORDERED A PALLIATIVE CARE CONSULT. PHYSICIAN HAS ENTERED DISCHARGE ORDERS BUT WE ARE AWAITING DME. CM TO FOLLOW INDICATED WITH DC PLANNING.
[2019-10-19 14:52] VITALS: BP 126/63
[2019-10-19 20:11] VITALS: BP 115/56
--- NOTE | 2019-10-20 01:07 | NUR ---
PATIENT AOX3 MAKES NEEDS KNOWN. PATIENT ENCOURAGED FLUIDS.PAIN CONTROLLED THIS SHIFT. PATIENT IS ON ROOM AIR, NO SHORTNESS OF AIR OR DISTRESS NOTED THIS SHIFT.PATIENT IN BED ASLEEP AT THIS TIME BREATHING REGULAR AND UNLABOURED.
[2019-10-20 07:24] VITALS: BP 177/83
--- NOTE | 2019-10-20 08:09 | NUR ---
Assumed patient care at 0715. Blood Pressure 177/83, she was given her blood pressure medication; asymptomatic. LSCTA, ABD soft and non-tender, BS x's 4, skin is clean, warm, dry and intact. Patient is very forgetful, needs reminders. She was given Oxycodone 5mg 1 tab po at 0802 for lower back pain, level "ten." She was assisted with the bedpan per this nurse with good urine output. Patient has Discharge Orders. Waiting for a Hospital bed for her home with .
[2019-10-20] MEDS ORDERED: DOXYCYCLINE HYC50 MG PO (11:52)
--- NOTE | 2019-10-20 12:36 | NUR ---
[facility]DERS/SUMMARY SPOKE WITH TONYA IN INTAKE SHE RECEIVED ORDERS AND WILL NOTIFY PT TIME OF VISITS.
[2019-10-20 12:57] VITALS: BP 116/62
--- NOTE | 2019-10-20 14:54 | NUR ---
DR. BRUSH WAS CONSULTED AND MET [facility] PT AND FAMILY YESTERDAY. THEY INDICATED THAT THEY DON'T WANT TO ELECT HOSPICE SERVIES AT THIS TIME. THEY WANT TO RETURN HOME WITH [facility]. [facility] CAN PROVIDE HOSPITAL BED IT IS TO BE DELIVERED BETWEEN [phone] THIS EVENING. SPOUSE IS TO CONTACT CM ONCE BED IS DELIVERED FOR CM TO [facility] HOME. OUT OF HOSPITAL DNR FORM COMPLETED. CM TO [facility]. [facility] PT UPON DC. CM PROVIDED SPOUSE WITH INFO ON HOME MEDICAL SUPPLY FOR BEDSIDE TABLE. CM TO FOLLOW INDICATED WITH DC PLANNING.
== END 2019-10-20 18:24 | disposition home health service (06) | DRG 542 ==
LOC: ER 06:36 → 4W 11:18 → EROBS 11:18 → 4W 19:37
PROVIDERS: Emergency Medicine; Nurse Practitioner; ADMIT Hospitalist; ATTEND Hospitalist
DX: M80.00XA Age-related osteoporosis with current pathological fracture, unspecified site, initial encounter for fracture (principal); E43 Unspecified severe protein-calorie malnutrition; S22.42XA Multiple fractures of ribs, left side, initial encounter for closed fracture; I50.32 Chronic diastolic (congestive) heart failure; J90 Pleural effusion, not elsewhere classified; J94.2 Hemothorax; I48.20 Chronic atrial fibrillation, unspecified; Z68.1 Body mass index [BMI] 19.9 or less, adult; E86.0 Dehydration; I73.9 Peripheral vascular disease, unspecified; K59.00 Constipation, unspecified; I27.20 Pulmonary hypertension, unspecified; D69.6 Thrombocytopenia, unspecified; I11.0 Hypertensive heart disease with heart failure; Z66 Do not resuscitate; M62.84 Sarcopenia; G47.00 Insomnia, unspecified; F32.9 Major depressive disorder, single episode, unspecified; R62.7 Adult failure to thrive; G89.29 Other chronic pain; M54.5 Low back pain; Z88.8 Allergy status to other drugs, medicaments and biological substances; Z87.891 Personal history of nicotine dependence; Z95.0 Presence of cardiac pacemaker; W18.39XA Other fall on same level, initial encounter; Y93.89 Activity, other specified; Y92.89 Other specified places as the place of occurrence of the external cause; Y99.8 Other external cause status
CPT/HCPCS: 10040

== ENCOUNTER → 2019-11-21 | Outpatient (CLI) | payer OTHER ==
[~2019-11-21] MED LIST changes: +ALBUTEROL2.5 MG/3 M INH; +DOXYCYCLINE HYC50 MG PO; +LASIX 20 MG TAB20 MG PO; +LIDOPATCH1 EACH TRANSDERM; +MACROBID 100 M100 M1 PO; +ROXICODONE5 M2 PO
== END ==
LOC: SJCVC 10:25
PROVIDERS: ATTEND Internal Medicine
DX: R94.31 Abnormal electrocardiogram [ECG] [EKG] (principal); I48.91 Unspecified atrial fibrillation; E78.5 Hyperlipidemia, unspecified; J44.9 Chronic obstructive pulmonary disease, unspecified; I73.9 Peripheral vascular disease, unspecified; Z79.899 Other long term (current) drug therapy; Z87.891 Personal history of nicotine dependence

== ENCOUNTER 2019-11-23 14:45 | Emergency (ER) | payer OTHER ==
[~2019-11-23] VITALS: Ht 162.6 cm; Wt 57.1 kg
[~2019-11-23 14:45] MED LIST changes: -ALBUTEROL2.5 MG/3 M INH; -MACROBID 100 M100 M1 PO
[2019-11-23 15:17] LABS: ABSOLUTE NEUTROPHILS 4.9 thou/uL (1.4-8.2); BASOPHILS 0.8 % (0.0-2.0); EOSINOPHILS 0.8 % (0.0-3.0); HEMATOCRIT 44.5 % (37.0-47.0); HEMOGLOBIN 14.7 gm/dL (12.0-15.0); LYMPHOCYTES 11.8 % (24.0-44.0); MCHC 33.1 g/dL (28.0-37.0); MCV 93.6 fL (80.0-100.0); MONOCYTES 7.8 % (1.0-8.0); PLATELET COUNT 137 thou/uL (150-400); POLYS 78.8 % (36.0-66.0); RBC 4.75 mil/uL (4.20-5.00); RDW 15.6 % (10.5-14.5); WBC 6.3 thou/uL (4.0-11.0)
[2019-11-23 15:46] LABS: URINE BILIRUBIN 1+ (Negative); URINE BLOOD NEGATIVE (Negative); URINE CLARITY CLEAR; URINE COLOR YELLOW; URINE GLUCOSE-RANDOM* NEGATIVE (Negative); URINE KETONES 1+ (Negative); URINE LEUKOCYTES-REFLEX TRACE (Negative); URINE NITRITE-REFLEX NEGATIVE (Negative); URINE PROTEIN (DIPSTICK) 2+ (Negative); URINE SPECIFIC GRAVITY >= 1.030 (1.005-1.035)
[2019-11-23 15:49] LABS: ICTOTEST (BILI CONFIRMATORY) Negative (Negative)
[2019-11-23 15:56] LABS: BACTERIA-REFLEX 1-9 Few /HPF (None Seen); SQUAMOUS >10 Many /LPF (0-3); URINE WBC-REFLEX 6-15 Few /HPF (0-5)
[2019-11-23 15:57] LABS: CRYSTALS None Seen /LPF (None Seen); HYALINE CASTS 0-3 Few /LPF (None Seen); URINE RBC 0-2 Rare /HPF (0-2)
[2019-11-23] MEDS ORDERED: MACROBID 100 M100 M1 PO (16:29)
[2019-11-23] MEDS ORDERED: ALBUTEROL2.5 MG/3 M INH (16:29)
[2019-11-23 17:06] LABS: ANION GAP 8 mmol/L (7-16); BUN 16 mg/dL (7-18); CALCIUM 9.1 mg/dL (8.5-10.1); CHLORIDE 89 mmol/L (98-107); CO2 25 mmol/L (21-32); CREATININE 0.7 mg/dL (0.6-1.0); GLUCOSE 111 mg/dL (74-106); SODIUM 122 mmol/L (136-145)
[2019-11-23 17:16] LABS: ALBUMIN 2.9 g/dL (3.4-5.0); SGOT 54 U/L (15-37); SGPT 24 U/L (30-65); TOTAL BILIRUBIN 1.2 mg/dL (0.2-1.0); TOTAL PROTEIN 6.4 g/dL (6.4-8.2); TROPONIN-I <0.06 ng/mL (<0.06)
[2019-11-23 18:23] VITALS: BP 122/53
== END 2019-11-23 18:24 | disposition short-term general hospital (02) ==
LOC: ER 14:45
PROVIDERS: Physician Assistant
DX: I62.00 Nontraumatic subdural hemorrhage, unspecified (principal); R44.0 Auditory hallucinations; R44.1 Visual hallucinations; E87.1 Hypo-osmolality and hyponatremia; I48.91 Unspecified atrial fibrillation; I73.9 Peripheral vascular disease, unspecified; I11.0 Hypertensive heart disease with heart failure; I50.9 Heart failure, unspecified; Z98.890 Other specified postprocedural states; Z79.899 Other long term (current) drug therapy; Z88.8 Allergy status to other drugs, medicaments and biological substances; Z87.891 Personal history of nicotine dependence